=== PATIENT | male | born 1950 | race Caucasian/White ===

== ENCOUNTER 2024-11-19 09:11 | Outpatient (AMB) | payer MEDICARE, OTHER, SELFPAY ==
--- OUTSIDE RECORDS SUMMARY | 2024-11-19 09:40 | XMS_ITS | Encounter Summary ---
Author Organization [facility] Address [address] [facility] [address] [place] [address] Phone Care Team Providers Care Vehicle Return Associate Name Role Phone Edis Abdalla MD Primary Care Provider +[phone] Solo Anna MD Unavailable [phone] Krystle Diaz RN Unavailable YVONNE [email or web address] Last Jackman MD Unavailable [phone] Selina Rao RN Unavailable PATEL HERRON@[email or web address] Vivek Huddleston RN Unavailable [phone] Rima Dubon RN Unavailable KYLAH [email or web address] Encounter Details Date Type Department Care Team (Late st Contact Info) Description 10/19/2020 Procedure Pass [facility] [place] [address] [place] [address] Social History Tobacco Use Types Packs/Day Years Used Date Smoking Tobacco: Never Smokeless Tobacco: Never Alcohol Use Standard Drinks/Week Comments No 0 (1 standard drink = 0.6 oz pur e alcohol) Sex and Gender Information Value Date Recorded Sex Assigned at Not on file Legal Sex Male 3:40 PM EDT Gender Identity Not on file Sexual Orientation Not on file documented as of this encounter Plan of Treatment Upcoming Encounters Date Type Department Care Team (Late st Contact Info) Description 09/22/2025 8:30 AM EDT Telemedicine - audio only [facility], [facility] [place] [facility] [place] [address] [facility], 11th [place] [address] Last Jackman MD [address] [place] [address] [email or web address] documented as of this encounter Visit Diagnoses Not on filedocumented in this encounter Care Teams Vehicle Return Associate Relationship Specialty Start Date End Date Edis Abdalla MD [address] [place] [address] [address] [place] [address] PCP - General Internal Medicine 01/18/18 Solo Anna MD 100 [facility] [address] [place] [phone] [email or web address] Referring Physician Urology 01/18/18 Krystle Diaz, BRITNEY 100 [facility] 120 [place] [address] OG@[email or web address] Primary Infusion Nurse 04/08/18 Last Jackman MD [address] [place] [address] [email or web address] Medical Oncology 10/22/18 Selina Rao RN [address] [place] [address] [email or web address] Associate Infusion Nurse 11/26/19 Vivek Huddleston RN [address] [place] [address] [email or web address] Associate Infusion Nurse 11/26/19 1 Rima Dubon RN [address] [place] [address] VIOLETA@[email or web address] Associate Infusion Nurse 02/21/21 documented as of this encounter Additional Source Comments The information contained in this document represents components of the legal health record. It is not the complete legal health record.[facility]
--- OUTSIDE RECORDS SUMMARY | 2024-11-19 09:40 | XMS_ITS | Clinical Summary ---
Author Organization [facility] Address [address] [place] [address] Care Team Providers Care Bakery Helper Name Role Phone Edis Abdalla MD Primary Care Provider Allergies Active Allergy Reactions Criticality Noted Date Comments Tamsulosin 09/18/2018 Medications Medication Sig Dispensed Refills Start Date End Date Status venlafaxine (EFFEXOR-XR) 150 MG 24 hr capsule Take 150 mg by mouth daily. 5 08/25/2018 Active simvastatin (ZOCOR) tablet 10 mg Take 10 mg by mouth. 0 Active metFORMIN (GLUCOPHAGE-XR) ER 24 hr tablet 500 mg 0 09/09/2018 Active losartan (COZAAR) tablet 50 mg Take 50 mg by mouth daily. 1 08/13/2018 Active aspirin 81 MG chewable tablet Baby Aspirin 81 mg chewable tablet Chew 1 tablet every day by oral route. 0 Active fluticasone (FLONASE) 50 MCG/ACT nasal spray spray or apply 1 spray inside Nose daily. 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 Tenosynovitis 09/18/2018 Social History Tobacco Use Types Packs/Day Years Used Date Smoking Tobacco: Never Smokeless Tobacco: Never Chew Sex and Gender Information Value Date Recorded Sex Assigned at Male 09/18/2018 9:30 AM EDT Gender Identity Male 09/18/2018 9:30 AM EDT Sexual Orientation Not on file Job Start Date Occupation Industry Not on file Not on file Not on file Last Filed Vital Signs Vital Sign Reading Time Taken Comments Blood Pressure 157/74 11/01/2019 2:45 PM EDT Pulse 65 11/01/2019 2:45 PM EDT Temperature 36.4 C (97.5 F) 11/01/2019 2:45 PM EDT Respiratory Rate 16 11/01/2019 2:45 PM EDT Oxygen Saturation 95% 11/01/2019 2:45 PM EDT Inhaled Oxygen Concentration - - Weight 133.8 kg (295 lb) 11/01/2019 12:33 PM EDT Height 190.5 cm (6' 3 ) 11/01/2019 12:33 PM EDT Body Mass Index 36.87 11/01/2019 12:33 PM EDT Plan of Treatment Health Maintenance Due Date Last Done Comments Hepatitis C Screening 1950 COVID-19 Vaccine (#1) 06/23/1951 Depression Screening 1962 Preventative Health Evaluation 1968 DTap / Tdap / Td (1 - Tdap) 1969 Colon Cancer Screening (Colonoscopy) 12/24/1995 Shingrix-Zoster Vaccine (1 of 2) 2000 Fall Risk Assessment 12/24/2015 Pneumococcal Vaccine (2 of 2 - PPSV23 or PCV20) 04/24/2017 04/24/2016 BMI Counseling 09/19/2019 09/18/2018 Influenza Vaccine (#1) 2024 01/08/2017 RSV Adult > 60+ Yrs or Pregn ant (1 - 1-dose 75+ series) 2025 Hepatitis B Vaccines Aged Out No long er eligible based on patient's age to complete this topic RSV Ped < 20 months Aged Out No longe r eligible based on patient's age to complete this topic Care Teams Bakery Helper Relationship Specialty Start Date End Date Edis Abdalla MD PCP - General Internal Medicine 09/18/18
--- OUTSIDE RECORDS SUMMARY | 2024-11-19 09:40 | XMS_ITS | Clinical Summary ---
Author Organization [facility], Address [address] [place] [address] Care Team Providers Care Timber Management Specialist Name Role Phone Edis Abdalla MD Primary Care Provider [phone] Allergies Active Allergy Reactions Criticality Noted Date Comments Tamsulosin 08/04/2019 Medications aspirin (ST GRANT) 81 MG EC tablet Take 81 mg by mouth 1 (one) time each day Active Calcium Carbonate-Vitam in D (CALTRATE 600+D PO) Take 1 tablet by mouth twice a day Active omega-3 (FISH OIL) 1000 MG capsule Take 1 capsule by mouth 1 (one) time each day Active fluticasone (FLONASE) 50 MCG/ACT nasal spray Administer 1 spray into each nostril 1 (one) time each day Active losartan (COZAAR) 50 MG tablet Take 50 mg by mouth 1 (one) time each day Active metFORMIN XR (GLUCOPHATE-XR) 500 MG 24 hr tablet Take 500 mg by mouth 1 (one) time each day Active metroNIDAZOLE (METROCREAM) 0.75 % cream Apply topically 2 (two) times a day Active Lactobacillus Rhamnosus, GG, (PROBIOTIC COLIC PO) Take 1 capsule by mouth 1 (one) time each day Active simvastatin (ZOCOR) 20 MG tablet Take 20 mg by mouth every night Active acetaminophen (TYLENOL) 325 MG tablet Take 325 mg by mouth 3 (three) times a day Active venlafaxine XR (EFFEXOR-XR) 75 MG 24 hr capsule Take 75 mg by mouth 1 (one) time each day Active Active Problems Problem Noted Date Diagnosed Date Type 2 diabetes mellitus 08/09/2020 Overview (08/09/2020): managed with metformin Stage 3a chronic kidney disease 08/04/2019 Malignant neoplasm of prostate 12/24/2017 Overview (08/09/2020): Followed by Dr. Azalia Shaw [facility]. Currently on protocol 18-429 METACURE Randomized to Cohort A, Arm 1 (neoadjuvant Lupron {LD 09/25/2018}+ apalutamide {LD planned for 10/01/2018} only). Pt. now scheduled for have Robotic Laparoscopic Radical Prostatectomy. Benign prostatic hyperplasia with lower urinary tract symptom Essential hypertension Hyperlipidemia Impaired fasting glucose Immunizations Immunization Administration Dates Next Due Influenza Split High Dose Preservative Free IM 1 Pneumococcal Conjugate 13-Valent 04/24/2016 Zoster 08/08/2018 Family History Medical History Relation Comments Prostate cancer Brother Cancer Father bladder, lung Diabetes Father Kidney disease Father Arthritis Mother Relation Status Comments Brother Father Mother Social History Tobacco Use Types Packs/Day Years Used Date Smoking Tobacco: Never Alcohol Use Standard Drinks/Week Comments No 0 (1 standard drink = 0.6 oz pur e alcohol) Sex and Gender Information Value Date Recorded Sex Assigned at Not on file Legal Sex Male 4:36 PM EST Gender Identity Not on file Sexual Orientation Not on file Last Filed Vital Signs Vital Sign Reading Time Taken Comments Blood Pressure 128/78 08/01/2022 2:41 PM EDT Pulse 70 08/01/2022 2:41 PM EDT Temperature - - Respiratory Rate 22 08/07/2017 12:00 PM EDT Oxygen Saturation - - Inhaled Oxygen Concentration - - Weight 132 kg (292 lb) 08/09/2021 2:55 PM EDT Height 190.5 cm (6' 3 ) 08/06/2018 12:00 PM EDT Body Mass Index 36.5 08/06/2018 12:00 PM EDT Plan of Treatment Health Maintenance Due Date Last Done Comments Colorectal Cancer Screening: Annual FOBT 12/24/1999 Colorectal Cancer Screening: Colonoscopy 12/24/1999 Colorectal Cancer Screening: Sigmoidoscopy 12/24/1999 Diabetes: Hemoglobin A1C 08/09/2020 Diabetes: Ophthalmology Exam 08/09/2020 Diabetes: Pedal Pulse Checked 08/09/2020 Diabetes: Sensory Foot Exam 08/09/2020 Diabetes: Visual Foot Exam 08/09/2020 Influenza Vaccine (#1) 2024 0, 01/08/2017, 01/26/2016 Pneumococcal Vaccine: 50+ Years Completed 10/01/2017, 04/24/2016 Pneumococcal Vaccine: Peds ( 0 to 5 Years) and At-Risk Patients (6 to 49 Years) Discontinued 10/01/2017, 04/24/2016 Hepatitis B Vaccine Aged Out No longe r eligible based on patient's age to complete this topic Insurance Medicare [facility] Care Teams Timber Management Specialist Relationship Specialty Start Date End Date Edis Abdalla MD [address] [place] [address] PCP - General 01/28/19
--- OUTSIDE RECORDS SUMMARY | 2024-11-19 09:40 | XMS_ITS | Encounter Summary ---
Author Organization [facility] Address [address] [facility] [address] [place] [address] Phone Care Team Providers Care Textile Screen Maker Name Role Phone Edis Abdalla MD Primary Care Provider [phone]- [phone] Solo Anna MD Unavailable [phone]- [phone] Krystle Diaz RN Unavailable YVONNE RUDD@[email or web address].[place].[facility] Last Jackman MD Unavailable [phone] Selina Rao RN Unavailable PATEL HERRON@[facility].[place] Vivek Huddleston RN Unavailable [phone] Rima Dubon RN Unavailable KYLAH ISAAC@[email or web address].[place] Encounter Details Date Type Department Care Team (Late st Contact Info) Description 01/21/2020 Procedure Pass [facility] [address] [place] [address] Social History Tobacco Use Types Packs/Day Years [...] 8:30 AM EDT Telemedicine - audio only [facility], [facility] [place] [address] [facility], 11th [place] [address] Last Jackman MD [address] [place] [address] Silvestre@[email or web address] documented as of this encounter Visit Diagnoses Not on filedocumented in this encounter Care Teams Textile Screen Maker Relationship Specialty Start Date End Date Edis Abdalla MD [address] [place] [address] [address] [place] [address] PCP - General Internal Medicine 01/18/18 Solo Anna MD [address] [phone] [email or web address] Referring Physician Urology 01/18/18 Krystle Diaz, BRITNEY [address] [phone] OG@[email or web address] Primary Infusion Nurse 04/08/18 Last Jackman MD [address] [place] [address] Silvestre@[email or web address] Medical Oncology 10/22/18 Selina Rao RN [address] [place] [address] DAVID@[facility] Associate Infusion Nurse 11/26/19 Vivek Huddleston RN [address] [place] [address] [email or web address] Associate Infusion Nurse 11/26/19 1 Rima Dubon RN [address] [place] [address] VIOLETA@[email or web address] Associate Infusion Nurse 02/21/21 documented as of this encounter Additional Source Comments The information contained in this document represents components of the legal health record. It is not the complete legal health record.[facility]
--- OUTSIDE RECORDS SUMMARY | 2024-11-19 09:40 | XMS_ITS | Encounter Summary ---
Author Organization [facility] Address [address] [facility] [address] [place] [address] Phone Care Team Providers Care Warehouse Receiving Clerk Name Role Phone Edis Abdalla MD Primary Care Provider [phone] Solo Anna MD Unavailable [phone]- [phone] Krystle Diaz RN Unavailable YVONNE RUDD@[email or web address].[place] Last Jackman MD Unavailable [phone] Selina Rao RN Unavailable PATEL HERRON@[facility].[place] Vivek Huddleston RN Unavailable [phone] Rima Dubon RN Unavailable KYLAH ISAAC@[facility].[place] Encounter Details Date Type Department Care Team (Late st Contact Info) Description 02/11/2018 Procedure Pass [facility] [address] [place] [address] Social History Tobacco Use Types Packs/Day Years Used Date Smoking Tobacco: Never Assessed Sex and Gender Information Value Date Recorded Sex Assigned at Not on file Legal Sex Male 3:40 PM EDT Gender Identity Not on file Sexual Orientation Not on file documented as of this encounter Plan of Treatment Upcoming Encounters Date Type Department Care Team (Late st Contact Info) Description 09/22/2025 8:30 AM EDT Telemedicine - audio only [facility], [facility] [place] [address] [facility], 11th [place] [address] Last Jackman MD [address] [place] [address] Silvestre@[email or web address] documented as of this encounter Visit Diagnoses Not on filedocumented in this encounter Care Teams Warehouse Receiving Clerk Relationship Specialty Start Date End Date Edis Abdalla MD [address] [place] [address] PCP - General Internal Medicine 01/18/18 Solo Anna MD [address] [phone] [email or web address] Referring Physician Urology 01/18/18 Krystle Diaz RN [address] [phone] OG@[email or web address] Primary Infusion Nurse 04/08/18 Last Jackman MD [address] [place] [address] Silvestre@[email or web address] Medical Oncology 10/22/18 Selina Rao RN [address] [place] [address] DAVID@[facility] Associate Infusion Nurse 11/26/19 Vivek Huddleston, BRITNEY [address] [place] [address] [email or web address] Associate Infusion Nurse 11/26/19 1 Rima Dubon RN [address] [place] [address] VIOLETA@[facility] Associate Infusion Nurse 02/21/21 documented as of this encounter Additional Source Comments The information contained in this document represents components of the legal health record. It is not the complete legal health record.[facility]
--- OUTSIDE RECORDS SUMMARY | 2024-11-19 09:40 | XMS_ITS | Encounter Summary ---
Author Organization [facility] Address [address] [facility] [address] [place] [address] Phone Care Team Providers Care Detention Officer Name Role Phone Edis Abdalla MD Primary Care Provider [phone] Solo Anna MD Unavailable [phone] Krystle Diaz RN Unavailable YVONNE [email or web address].[place].[facility] Last Jackman MD Unavailable [phone] Selina Rao RN Unavailable PATEL HERRON@[facility] Vivek Huddleston RN Unavailable [phone] Rima Dubon RN Unavailable KYLAH [email or web address] Encounter Details Date Type Department Care Team (Late st Contact Info) Description 03/25/2018 Procedure Pass [facility], [place] [address] [place] [address] Social History Tobacco Use Types Packs/Day Years [...] on file documented as of this encounter Last Filed Vital Signs Vital Sign Reading Time Taken Comments Blood Pressure - - Pulse - - Temperature - - Respiratory Rate - - Oxygen Saturation - - Inhaled Oxygen Concentration - - Weight 126.1 kg (278 lb) 03/28/2018 11:00 AM EST Height - - Body Mass Index 36.06 02/11/2018 3:32 PM EST documented in this encounter Plan of Treatment Upcoming Encounters Date Type Department Care Team (Late st Contact Info) Description 09/22/2025 8:30 AM EDT Telemedicine - audio only [facility], [facility] [place] [address] [facility], 11th [place] [address] Last Jackman MD 450 [place] [address] Silvestre@[email or web address] documented as of this encounter Visit Diagnoses Not on filedocumented in this encounter Care Teams Detention Officer Relationship Specialty Start Date End Date Edis Abdalla MD [facility] [address] [place] [address] PCP - General Internal Medicine 01/18/18 Solo Anna MD 100 [facility] 120 [place] [address] [email or web address] Referring Physician Urology 01/18/18 Krystle Diaz RN 100 [facility] 120 [place] [address] OG@[email or web address] Primary Infusion Nurse 04/08/18 Last Jackman MD [address] [place] [address] Silvestre@[facility] Medical Oncology 10/22/18 Selina Rao RN [address] [place] [address] DAVID@[facility] Associate Infusion Nurse 11/26/19 Vivek Huddleston RN 450 [place] [address] Rickey@[facility] Associate Infusion Nurse 11/26/19 1 Rima Dubon RN [address] [place] [address] VIOLETA@[facility] Associate Infusion Nurse 02/21/21 documented as of this encounter Additional Source Comments The information contained in this document represents components of the legal health record. It is not the complete legal health record.[facility]
--- OUTSIDE RECORDS SUMMARY | 2024-11-19 09:40 | XMS_ITS | Encounter Summary ---
Author Organization [facility] Address [address] [facility] [address] [place] [address] Phone Care Team Providers Care Emergency Medicine Physician Name Role Phone Edis Abdalla MD Primary Care Provider [phone] Solo Anna MD Unavailable [phone] Krystle Diaz RN Unavailable YVONNE RUDD@[email or web address] Last Jackman MD Unavailable [phone] Selina Rao RN Unavailable PATEL HERRON@[facility] Vivek Huddleston RN Unavailable [phone] Rima Dubon RN Unavailable KYLAH ISAAC@[email or web address] Encounter Details Date Type Department Care Team (Late st Contact Info) Description 10/03/2018 Procedure Pass [facility] Periop [address] [place] [address] Social History Tobacco Use Types Packs/Day Years [...] 8:30 AM EDT Telemedicine - audio only [facility], [facility] [place] [address] [place] [address] 11th [place] [address] Last Jackman MD [address] [place] [address] Silvestre@[email or web address] documented as of this encounter Visit Diagnoses Not on filedocumented in this encounter Care Teams Emergency Medicine Physician Relationship Specialty Start Date End Date Edis Abdalla MD [address] [place] [address] 201 [place] [address] PCP - General Internal Medicine 01/18/18 Solo Anna MD [address] [phone] [email or web address] Referring Physician Urology 01/18/18 Krystle Diaz RN [address] [phone] OG@[facility] Primary Infusion Nurse 04/08/18 Last Jackman MD [address] [place] [address] Silvestre@[facility] Medical Oncology 10/22/18 Selina Rao RN [address] [place] [address] DAVID@[facility] Associate Infusion Nurse 11/26/19 Vivek Hudldeston RN [address] [place] [address] [email or web address] Associate Infusion Nurse 11/26/19 1 Rima Dubon RN [address] [place] [address] VIOLETA@[facility] Associate Infusion Nurse 02/21/21 documented as of this encounter Additional Source Comments The information contained in this document represents components of the legal health record. It is not the complete legal health record.[facility]
--- OUTSIDE RECORDS SUMMARY | 2024-11-19 09:40 | XMS_ITS ---
Author Organization [facility] Address [address] [facility] [address] [place] [address] Phone Care Team Providers Care Horticultural Technical Officer Name Role Phone Edis Abdalla MD Primary Care Provider [phone] Solo Anna MD Unavailable [phone] Krystle Diaz RN Unavailable YVONNE [email or web address] Last Jackman MD Unavailable Selina Rao RN Unavailable PATEL HERRON@[email or web address] Rima Dubon RN Unavailable KYLAH [email or web address] Active Problems Problem Noted Date Diagnosed Date Malignant neoplasm of prostate 02/11/2018 Prostate cancer 12/24/2017 Overview (09/25/2018): Followed by Dr. Azalia Shaw [facility]. Currently on protocol 18-429 METACURE Randomized to Cohort A, Arm 1 (neoadjuvant Lupron {LD 09/25/2018}+ apalutamide {LD planned for 10/01/2018} only). Pt. now scheduled for have Robotic Laparoscopic Radical Prostatectomy. 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 Treated in [place], [place] Sleep apnea 03/26/2010 Overview (09/25/2018): CPAP Hypertensive disorder 03/26/2003 Overview (09/25/2018): Well controlled with Losartan. Managed by Dr. Edis Abdalla Hyperlipidemia Overview (09/25/2018): on statin Hot flashes Overview (09/25/2018): r/t Lupron. Managed with Effexor. Diabetes type 2, controlled Overview (09/25/2018): managed with metformin Colon polyp Arthritis Overview (09/25/2018): ? right thum and back Obesity (BMI 30-39.9) Overview (09/25/2018): Ht: 75 , Wt: 282# = BMI 35.25 Current Treatment and Therapy Plans No current plan information found. Past Treatment and Therapy Plans Oncology Therapy Plan Plan Name Start Date Discontinue Date Treatment Medications Discontinue Reason Plan Provider LEUPROLIDE ACETATE 3 MONTH (LUPRON DEPOT 3 MONTH) 11/23/2020 02/10/2022 leuprolide (LUPRON) a. Therapy Complete Last Jackman MD LEUPROLIDE ACETATE 3 MONTH (LUPRON DEPOT 3 MONTH) 04/09/2018 03/28/2019 leuprolide (LUPRON) a. Therapy Complete Last Jackman MD RESEARCH PLAN Plan Name Start Date Discontinue Date Treatment Medications Discontinue Reason Plan Provider Cycles -429 ARM 1 04/09/2018 01/20/2022 ID-apalutamide <[id number]> () a. Therapy Complete Last Jackman MD 9 of 10 cycles completed
--- OUTSIDE RECORDS SUMMARY | 2024-11-19 09:40 | XMS_ITS | Clinical Summary ---
Author Organization [facility] Address [address] [place] [address] Care Team Providers Care Wholesaler Name Role Phone Edis Abdalla MD Primary Care Provider [phone] Social History Tobacco Use Types Packs/Day Years Used Date Smoking Tobacco: Never Assessed Sex and Gender Information Value Date Recorded Sex Assigned at Male 11/12/2024 9:45 AM EDT Legal Sex Male 9:43 AM EDT Gender Identity Male 11/12/2024 9:45 AM EDT Sexual Orientation Heterosexual (straight) 11/12 9:45 AM EDT Plan of Treatment Upcoming Encounters Date Type Department Care Team (Late st Contact Info) Description 01/01/2025 7:00 AM EDT Clinical Support [facility] [address], [place] [phone] Bhavik Mcwilliams MD [address] [place] [address] Wendy Yen Au.D [address] [place] [address] Health Maintenance Due Date Last Done Comments Hepatitis C Virus Screening 1950 DTaP/Tdap/Td Vaccines (1 - Tdap) 1969 Colonoscopy 12/24/1995 Pneumococcal Vaccines 50+ (1 of 1 - PCV) 2000 Zoster (Shingles) Vaccine (1 of 2) 2000 COVID-19 Vaccine ( - 2023-2 5 season) 2023 Influenza Vaccine 10/24/2024 RSV Vaccine 60 years and old er and Patients (1 - 1-dose 75+ series) 2025 Hepatitis B Vaccines Aged Out No long er eligible based on patient's age to complete this topic Insurance MEDICARE PART A & B Care Teams Wholesaler Relationship Specialty Start Date End Date Edis Abdalla MD [address] [place] [address] PCP - General 11/12/24
--- OUTSIDE RECORDS SUMMARY | 2024-11-19 09:40 | XMS_ITS | Encounter Summary ---
Author Organization [facility] Address [address] [facility] [address] [place] [address] Phone Care Team Providers Care Plastics Engineer Name Role Phone Edis Abdalla MD Primary Care Provider [phone] Solo Anna MD Unavailable [phone]- [phone] Krystle Diaz RN Unavailable YVONNE [email or web address] Last Jackman MD Unavailable [phone] Selina Rao RN Unavailable PATEL [email or web address] Vivek Huddleston RN Unavailable [phone] Rima Dubon RN Unavailable KYLAH [email or web address] Encounter Details Date Type Department Care Team (Late st Contact Info) Description 01/21/2020 Procedure Pass [facility] [address] [place] [address] Social History Tobacco Use Types Packs/Day Years [...] 8:30 AM EDT Telemedicine - audio only [facility], [facility] [place] [address] [facility], 11th [place] [address] Last Jackman MD [address] [place] [address] [email or web address] documented as of this encounter Visit Diagnoses Not on filedocumented in this encounter Care Teams Plastics Engineer Relationship Specialty Start Date End Date Edis Abdalla MD [address] [place] [address] [address] [place] [address] PCP - General Internal Medicine 01/18/18 Solo Anna MD [address] [phone] [email or web address] Referring Physician Urology 01/18/18 Krystle Diaz, BRITNEY [address] [phone] [email or web address] Primary Infusion Nurse 04/08/18 Last Jackman MD [address] [place] [address] [email or web address] Medical Oncology 10/22/18 Selina Rao RN [address] [place] [address] [email or web address] Associate Infusion Nurse 11/26/19 Vivek Huddleston RN [address] [place] [address] [email or web address] Associate Infusion Nurse 11/26/19 1 Rima Dubon RN [address] [place] [address] [email or web address] Associate Infusion Nurse 02/21/21 documented as of this encounter Additional Source Comments The information contained in this document represents components of the legal health record. It is not the complete legal health record.[facility]
--- OUTSIDE RECORDS SUMMARY | 2024-11-19 09:40 | XMS_ITS | Clinical Summary ---
Author Organization [facility] Address [address] [facility] [address] [place] [address] Phone Care Team Providers Care Eddy Current Inspector Name Role Phone Edis Abdalla MD Primary Care Provider [phone] Solo Anna MD Unavailable [phone] Krystle Diaz RN Unavailable YVONNE [email or web address] Last Jackman MD Unavailable Selina Rao RN Unavailable PATEL [email or web address] Rima Dubon RN Unavailable KYLAH [email or web address] Allergies Active Allergy Reactions Criticality Noted Date Comments Tamsulosin Headaches,Musculoskeletal Pain 02/08 Jaw pain Medications simvastatin (ZOCOR) 10 MG tablet Take 10 mg by mouth nightly. Active fluticasone propionate (FLONASE) 50 mcg/actuation nasal spray 1 spray by Nasal route daily. Active venlafaxine (EFFEXOR-XR) 37.5 MG 24 hr capsule Take 37.5 mg by mouth daily. Active Active Problems Problem Noted Date Diagnosed Date Malignant neoplasm of prostate 02/11/2018 Prostate cancer 12/24/2017 Overview (09/25/2018): Followed by Dr. Azalia Shaw [facility]. Currently on protocol 18-429 METACURE Randomized to Cohort A, Arm 1 (neoadjuvant Lupron {LD 09/25/2018}+ apalutamide {LD planned for 10/01/2018} only). Pt. now scheduled for have Robotic Laparoscopic Radical Prostatectomy. 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 Treated in [place], [place] Sleep apnea 03/26/2010 Overview (09/25/2018): CPAP [...] 75 , Wt: 282# = BMI 35.25 Encounters Date Type Department Care Team Description 10/03/2024 12:00 PM EDT Telemedicine - audio only [facility], Genitourinary Oncology [address] [facility] 2nd [place] [address] Last Jackman MD Malignant neoplasm of prostate (Primary Dx) 09/01/2024 Orders Only [facility], [facility] [place] [address] [facility], 11th [place] [address] Bobbi Saavedra Malignant neoplasm of prostate (Primary Dx) from Last 3 Months Immunizations Immunization Administration Dates Next Due Pneumococcal conjugate PCV13 10/04/2018(Deferred : Patient Refused) Family History Medical History Relation Comments Prostate cancer Brother 1 No Known Problems Brother 2 Bladder Cancer Father Lung cancer Father Rheumatoid arthritis Mother Relation Status Comments Brother 1 Alive Brother 2 Alive Father (Age 87) Maternal Grandmother (Age 90s) Mother Alive Paternal Grandmother (Age 103) Social History Tobacco Use Types Packs/Day Years Used Date Smoking Tobacco: Never Smokeless Tobacco: Never Alcohol Use Standard Drinks/Week Comments No 0 (1 standard drink = 0.6 oz pur e alcohol) Education Answer Date Recorded Are you interested in more education? Not on kylah e 07/21/2022 Are you concerned about learning? Not on file 07/21/2022 No 07/21/2022 No 07/21/2022 Digital Access Answer Date Recorded No 08/22/2022 No 08/22/2022 Reliable internet access at home? Not on file 08/22/2022 Device with a working camera? Not on file Sex and Gender Information Value Date Recorded Sex Assigned at Not on file Legal Sex Male 3:40 PM EDT Gender Identity Not on file Sexual Orientation Not on file Last Filed Vital Signs Vital Sign Reading Time Taken Comments Blood Pressure 137/69 02/22/2021 1:31 PM EST Pulse 72 02/22/2021 1:31 PM EST Temperature 36.8 C (98.2 F) 02/22/2021 1:31 PM EST Respiratory Rate 18 02/22/2021 1:31 PM EST Oxygen Saturation 97% 02/22/2021 1:31 PM EST Inhaled Oxygen Concentration - - Weight 139.7 kg (307 lb 15.7 oz) 02/22/2021 1:31 PM EST Height 187.2 cm (6' 1.7 ) 11/23/2020 1:13 PM EDT Body Mass Index 39.86 11/23/2020 1:13 PM EDT Plan of Treatment Upcoming Encounters Date Type Department Care Team (Late st Contact Info) Description 09/22/2025 8:30 AM EDT Telemedicine - audio only [facility], [facility] [place] [address] [facility], 11th [place] [address] Last Jackman MD 450 [place] [address] [email or web address] Health Maintenance Due Date Last Done Comments BLOOD PRESSURE 1950 DEPRESSION SCREENING 1962 HEPATITIS C SCREENING 1968 COLOGUARD 12/24/1995 COLONOSCOPY 12/24/1995 COLORECTAL CANCER SCREENING 12/24/1995 FIT TEST 12/24/1995 FOBT 12/24/1995 SIGMOIDOSCOPY 12/24/1995 VIRTUAL COLONOSCOPY 12/24/1995 DIABETIC EYE EXAM 09/25/2018 URINE MICROALBUMIN/CREATININE RATIO 09/25/2018 HEMOGLOBIN A1C 03/28/2019 09/25/2018 LIPID PANEL 01/26/2021 01/27/2020 Adult Td,Tdap Booster 11/29/2033 11/30/2023, 014 PNEUMOCOCCAL VACCINES (50+ years) Completed 10/01/2017, 04/24/2016 ZOSTER VACCINES Completed 08/08/2018, 05/24, 02/26/2014 RSV VACCINE Completed 02/09/2024, 02/23/2023 COVID-19 VACCINE Completed 07/14/2024, 04/2023, 06/04/2023, Additional history exists SMOKING STATUS SCREENING (Once After 26 Yrs) Completed 10/03/2024 HEPATITIS A VACCINES Aged Out No long er eligible based on patient's age to complete this topic HIB VACCINES Aged Out No longer eligi ble based on patient's age to complete this topic MENINGOCOCCAL VACCINES (ACWY) Aged Out No longer eligible based on patient's age to complete this topic MENINGOCOCCAL VACCINES (B) Aged Out N o longer eligible based on patient's age to complete this topic Medical Devices Implanted Type Area Braided Rug Maker Device Identifier Shelf Expiration Date Model / Serial / Lot Titanium & Screws R Foot Description:Right foot Procedures Procedure Name Priority Date/Time Associated Diagnosis Comments OUTSIDE LAB 10/01/2024 OUTSIDE LAB 10/01/2024 OUTSIDE LAB 10/01/2024 OUTSIDE LAB 09/24/2024 OUTSIDE LAB 09/24/2024 LIPID PANEL Routine 01/27/2020 10:31 AM EST [facility] [place] [facility] ([facility] drug therapy Malignant neoplasm of prostate HEMOGLOBIN A1C Routine 09/25/2018 2:08 PM EDT Pre-op evaluation from Last 3 Months or Most Recently Relevant to Health Maintenance Results * Outside Lab (10/01/2024) Only the most recent of5 resultswithin the time period is included. us Scanning Interface Provider LAB BLOOD ORDERABLES Final Result * (ABNORMAL) Lipid panel (01/27/2020 10:31 AM EST) CHOLESTEROL 164 <200 mg/dL [facility] LIC# [id number] TRIGLYCERIDES 202(H) 35 - 150 mg/dL [facility] LIC# [id number] HDL 45 40 - 80 mg/dL [facility] LIC# [id number] CALCULATED LDL 79 50 - 129 mg/dL [facility] LIC# [id number] VLDL 40 mg/dL [facility] LIC# [id number] CARDIAC RISK RATIO 3.6 0.0 - 5.0 [facility] LIC# [id number] Blood 01/27/2020 10:3 1 AM EST 01/27/2020 10:48 AM EST us Last Jackman MD LAB BLOOD ORDERABLES Final Result [facility] LIC# [id number] [address] [place] [address] * Hemoglobin A1c (09/25/2018 2:08 PM EDT) HEMOGLOBIN A1C 5.8 4.2 - 5.8 % [facility] CALC MEAN BLD GLUC 120 mg/dL [facility] Comment: There is no established normal range for the CMBG (Calculated Mean Blood Glucose). A hemoglobin A1c < 7% is the recommended target for most people with diabetes. The CMBG for an A1c of 7% is 154 mg/dL. The diagnostic hemoglobin A1c level for diabetes is greater than or equal to 6.5% which is a CMBG greater than or equal to 140 mg/dL. Blood 09/25/2018 2:08 PM EDT 09/25/2018 2:51 PM EDT Nghia Mahoney MD LAB BLOOD ORDERABLES Final Result [facility] [address] [place] [address] from Last 3 Months or Most Recently Relevant to Health Maintenance Insurance MEDICARE PART A & B [facility] MEDICARE ENHANCE SUPPLEMENT MEDICARE PART A & B [facility] MEDICARE ENHANCE SUPPLEMENT MEDICARE PART A & B [facility] MEDICARE ENHANCE SUPPLEMENT MEDICARE PART A & B [facility] MEDICARE ENHANCE SUPPLEMENT MEDICARE PART A & B [facility] MEDICARE ENHANCE SUPPLEMENT MEDICARE PART A & B [facility] MEDICARE ENHANCE SUPPLEMENT MEDICARE PART A & B [facility] MEDICARE ENHANCE SUPPLEMENT MEDICARE PART A & B [facility] MEDICARE ENHANCE SUPPLEMENT MEDICARE PART A & B [facility] MEDICARE ENHANCE SUPPLEMENT Advance Directives For more information, please contact: [phone] (9AM - 5PM Julianne/[facility], Sunday-Sunday) Documents on File Type Date Recorded Patient Superintendent Pipelines Expl anation Healthcare Proxy 10/10/2018 * Full Code (Presumed) (Latest Code Status on File) Date Activated Date Inactivated Comments 10/03/2018 9:11 PM 10/04/2018 4:37 PM Healthcare Agents on File Name Relationship Healthcare Agent Lakishahi p Communication Toan De Leon Spouse .Primary Health Care Agent (Proxy form on file) Care Teams Eddy Current Inspector Relationship Specialty Start Date End Date Edis Abdalla MD [address] [place] [address] PCP - General Internal Medicine 01/18/18 Solo Anna MD [address] [place] [address] [place] [address] [email or web address] Referring Physician Urology 01/18/18 Krystle Diaz RN [address] [facility] [address] [facility] [address] [place] [address] [email or web address] Primary Infusion Nurse 04/08/18 Last Jackman MD [address] [place] [address] [email or web address] Medical Oncology 10/22/18 Selina Rao RN [address] [place] [address] DAVID@[email or web address] Associate Infusion Nurse 11/26/19 Rima Dubon RN [address] [place] [address] VIOLETA@[email or web address] Associate Infusion Nurse 02/21/21 Additional Source Comments The information contained in this document represents components of the legal health record. It is not the complete legal health record.[facility]
--- OUTSIDE RECORDS SUMMARY | 2024-11-19 09:40 | XMS_ITS ---
[facility] Care Team Organization Name Specialty Phone Email Start Date End [facility] Edis Abdalla Primary Care 11/12/2024
--- OUTSIDE RECORDS SUMMARY | 2024-11-19 09:40 | XMS_ITS | Clinical Summary ---
Author Organization [employer] [facility] it Address [id number] [place] [address] Care Team Providers Care Burner Hand Name Role Phone Edis Abdalla MD Primary Care Provider [phone] Medical History Medical History Date Comments Allergic DX:Allergic Cancer (CMS/HCC V24, CMS/HCC V28) DX:Cancer (HCC);COMMENT:prostate High blood pressure DX:High bloo d pressure High cholesterol DX:High cholest ewa Social History Tobacco Use Types Packs/Day Years Used Date Smoking Tobacco: Never Smokeless Tobacco: Never Sex and Gender Information Value Date Recorded Sex Assigned at Not on file Legal Sex Male 6:32 PM EST Gender Identity Not on file Sexual Orientation Not on file Obstetrics History Plan of Treatment Health Maintenance Due Date Last Done Comments DTaP,Tdap,and Td Vaccines (1 - Tdap) 1969 Pneumococcal Vaccine: 50+ Ye ars (1 of 1 - PCV) 2000 Zoster Vaccines (1 of 2) 2000 Abdominal Aortic Aneurysm (A AA) Screen 02/25/2022 Cholesterol Screening (Lipid Panel) 02/25/2022 Colorectal Cancer Screening: Colonoscopy 02/25/2022 Falls Risk Assessment 02/25/2022 Hepatitis C Screening 02/25/2022 Social Influencers of Health Screening 02/25/2022 COVID-19 Vaccine ( - 2023-2 5 season) 2023 Depression Screening 03/26/2024 Influenza Vaccine (#1) 2024 RSV Immunization Adult Patie nts (1 - 1-dose 75+ series) 2025 HIB Vaccines Aged Out No longer eligi ble based on patient's age to complete this topic HPV Vaccines Aged Out No longer eligi ble based on patient's age to complete this topic Hepatitis A Vaccines Aged Out No long er eligible based on patient's age to complete this topic Hepatitis B Vaccines Aged Out No long er eligible based on patient's age to complete this topic IPV Vaccines Aged Out No longer eligi ble based on patient's age to complete this topic MMR Vaccines Aged Out No longer eligi ble based on patient's age to complete this topic Meningococcal ACWY Vaccine Aged Out N o longer eligible based on patient's age to complete this topic Meningococcal B Vaccine Aged Out No l onger eligible based on patient's age to complete this topic RSV Immunization Patients Un leticia 20 months Aged Out No longer eligible b ased on patient's age to complete this topic Varicella Vaccines Aged Out No longer eligible based on patient's age to complete this topic Care Teams Burner Hand Relationship Specialty Start Date End Date Edis Abdalla MD [address] [place] [address] PCP - General Internal Medicine 09/18/18
== END 2024-11-19 09:18 | disposition home or self-care (01) ==
LOC: HO.HMGAL 09:11
PROVIDERS: Visit Provider Registered Nurse Emergency
DX: J30.89 Other allergic rhinitis (principal)
CPT/HCPCS: 95117; 95165

== ENCOUNTER 2024-12-17 10:36 | Outpatient (AMB) | payer MEDICARE, OTHER, SELFPAY ==
--- OUTSIDE RECORDS SUMMARY | 2024-12-17 13:12 | XMS_ITS ---
Author Organization [facility] Address [address] [facility] [address] [place] [address] Phone Care Team Providers Care Sample Patternmaker Name Role Phone Edis Abdalla MD Primary Care Provider [phone] Solo Anna MD Unavailable [phone] Krystle Diaz RN Unavailable YVONNE [email or web address] Last Jackman MD Unavailable [phone] Selina Rao RN Unavailable PATEL HERRON@[email or web address] Rima Dubon RN Unavailable KYLAH [email or web address] Active Problems Problem Noted Date Diagnosed Date Malignant neoplasm of prostate 02/11/2018 Prostate cancer 12/24/2017 Overview (09/25/2018): Followed by Dr. Azalia Shaw [facility]. Currently on protocol 18-429 METACURE Randomized to Cohort A, Arm 1 (neoadjuvant Lupron {LD 09/25/2018}+ apalutamide {LD planned for 10/01/2018} only). Pt. now scheduled for have Robotic Laparoscopic Radical Prostatectomy. 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 Treated in [place], [place] Sleep apnea 03/26/2010 Overview (09/25/2018): CPAP [...] -429 ARM 1 04/09/2018 01/20/2022 ID-apalutamide <[id number]> () a. Therapy Complete Last Jackman MD 9 of 10 cycles completed
--- OUTSIDE RECORDS SUMMARY | 2024-12-17 13:12 | XMS_ITS | Encounter Summary ---
Author Organization [facility] Address [address] [facility] [address] [place] [address] Phone Care Team Providers Care Doorperson Name Role Phone Edis Abdalla MD Primary Care Provider [phone] Solo Anna MD Unavailable [phone] Krystle Diaz RN Unavailable YVONNE [email or web address] Last Jackman MD Unavailable [phone] Selina Rao RN Unavailable PATEL HERRON@[email or web address] Vivek Huddleston RN Unavailable [phone] Rima Dubon RN Unavailable KYLAH [email or web address] Encounter Details Date Type Department Care Team (Late st Contact Info) Description 01/21/2020 Procedure Pass [facility] [address] [place] [address] Social History Tobacco Use Types Packs/Day Years [...] Upcoming Encounters Date Type Department Care Team (Latest Contact Info) Description 09/15/2025 8:30 AM EDT Telemedicine - audio only [facility], [facility] [place] [address] [facility], 11th [place] [address] Last Jackman MD [address] [place] [address] [email or web address] documented as of this encounter Visit Diagnoses Not on filedocumented in this encounter Care Teams Doorperson Relationship Specialty Start Date End Date Edis Abdalla MD [address] [place] [address] PCP - General Internal Medicine 01/18/18 Solo Anna MD 100 [facility] 120 [place] [phone] [email or web address] Referring Physician Urology 01/18/18 Krystle Diaz RN [address] [facility] [address] [place] [address] [email or web address] Primary Infusion Nurse 04/08/18 Last Jackman MD [address] [address] [email or web address] Medical Oncology 10/22/18 Selina Rao RN [address] [place] [address] DAVID@[email or web address] Associate Infusion Nurse 11/26/19 Vivek Huddleston RN [address] [place] [address] [email or web address] Associate Infusion Nurse 11/26/19 1 Rima Dubon RN [address] [place] [address] VIOLETA@[email or web address] Associate Infusion Nurse 02/21/21 documented as of this encounter Additional Source Comments The information contained in this document represents components of the legal health record. It is not the complete legal health record.[facility]
--- OUTSIDE RECORDS SUMMARY | 2024-12-17 13:12 | XMS_ITS | Clinical Summary ---
Author Organization [facility], Address [address] [place] [address] Care Team Providers Care Manager Of Financial Name Role Phone Edis Abdalla MD Primary Care Provider [phone] Allergies Active Allergy Reactions Criticality Noted Date [...] Overview (08/09/2020): Followed by Dr. Azalia Shaw [facility]. Currently on protocol 18-429 METACURE Randomized [...] age to complete this topic Insurance Medicare [facility] Care Teams Manager Of Financial Relationship Specialty Start Date End Date Edis Abdalla MD [address] [place] [address] PCP - General 01/28/19
--- OUTSIDE RECORDS SUMMARY | 2024-12-17 13:12 | XMS_ITS | Clinical Summary ---
Author Organization [facility] Address [address] [place] [address] Care Team Providers Care Bartacker Name Role Phone Edis Abdalla MD Primary [...] age to complete this topic Care Teams Bartacker Relationship Specialty Start Date End Date Edis Abdalla MD PCP - General Internal Medicine 09/18/18
--- OUTSIDE RECORDS SUMMARY | 2024-12-17 13:12 | XMS_ITS | Encounter Summary ---
Author Organization [facility] Address [address] [facility] [address] [place] [address] Phone Care Team Providers Care Coal Pipeline Operator Name Role Phone Edis Abdalla MD Primary Care Provider +1- [phone] Solo Anna MD Unavailable +- [phone] Krystle Diaz RN Unavailable YVONNE [email or web address].[place].[facility] Last Jackman MD Unavailable [phone] Selina Rao RN Unavailable PATEL HERRON@[facility].[place].[facility] Vivek Huddleston RN Unavailable [phone] Rima Dubon RN Unavailable KYLAH ISAAC@[facility].[place].[facility] Encounter Details Date Type Department Care Team (Late st Contact Info) Description 02/11/2018 Procedure Pass DF IMG OUTSIDE IMG [address] [place] [address] Social History Tobacco Use Types Packs/Day Years [...] [facility], [facility] [place] 450 [facility], 11th [place] [address] Last Jackman MD 44 Juliana Hankins [address] [place] [address] Silvestre@[facility] documented as of this encounter Visit Diagnoses Not on filedocumented in this encounter Care Teams Coal Pipeline Operator Relationship Specialty Start Date End Date Edis Abdalla MD [address] [place] [address] PCP - General Internal Medicine 01/18/18 Solo Anna MD [address] [address] [email or web address] Referring Physician Urology 01/18/18 Krystle Diaz RN [address] [address] OG@[facility] Primary Infusion Nurse 04/08/18 Last Jackman MD 44 Juliana Hankins [address] [place] [address] Silvestre@[facility] Medical Oncology 10/22/18 Selina Rao RN [address] [place] [address] DAVID@[facility] Associate Infusion Nurse 11/26/19 Vivek Huddleston RN 450 [place] [address] Rickey@[facility] Associate Infusion Nurse 11/26/19 1 Rima Dubon RN 450 [place] [address] VIOLETA@[facility] Associate Infusion Nurse 02/21/21 documented as of this encounter Additional Source Comments The information contained in this document represents components of the legal health record. It is not the complete legal health record.[facility]
--- OUTSIDE RECORDS SUMMARY | 2024-12-17 13:12 | XMS_ITS | Encounter Summary ---
Author Organization [facility] Address [address] [facility] [address] [place] [address] Phone Care Team Providers Care Swing Grinder Name Role Phone Edis Abdalla MD Primary Care Provider +1- [phone] Solo Anna MD Unavailable [phone] Krystle Diaz RN Unavailable YVONNE RUDD@[facility].[place] Last Jackman MD Unavailable [phone] Selina Rao RN Unavailable PATEL HERRON@[facility].[place] Vivek Huddleston RN Unavailable [phone] Rima Dubon RN Unavailable KYLAH ISAAC@[facility].[place].[facility] Encounter Details Date Type Department Care Team (Late st Contact Info) Description 10/19/2020 Procedure Pass [facility]'s Waiter/Waitress [place] [address] [place] [address] Social History Tobacco Use Types Packs/Day Years [...] 8:30 AM EDT Telemedicine - audio only [facility], [facility] [place] [address] [place], [place] [address] [facility], 11th [place] [address] Lsat Jackman MD [address] [place] [address] Silvestre@[facility] documented as of this encounter Visit Diagnoses Not on filedocumented in this encounter Care Teams Swing Grinder Relationship Specialty Start Date End Date Edis Abdalla MD [address] [place] [address] 201 [place] [address] PCP - General Internal Medicine 01/18/18 Solo Anna MD 100 [facility] 120 [place] [address] [email or web address] Referring Physician Urology 01/18/18 Krystle Diaz RN 100 [facility] 120 [place] [address] OG@[facility] Primary Infusion Nurse 04/08/18 Last Jackman MD [address] [place] [address] Silvestre@[facility] Medical Oncology 10/22/18 Selina Rao RN [address] [place] [address] DAVID@[facility] Associate Infusion Nurse 11/26/19 Vivek Huddleston RN [address] [place] [address] Rickey@[facility] Associate Infusion Nurse 11/26/19 1 Rima Dubon RN [address] [place] [address] VIOLETA@[facility] Associate Infusion Nurse 02/21/21 documented as of this encounter Additional Source Comments The information contained in this document represents components of the legal health record. It is not the complete legal health record.[facility]
--- OUTSIDE RECORDS SUMMARY | 2024-12-17 13:12 | XMS_ITS | Encounter Summary ---
Author Organization [facility] Address [address] [facility] [address] [place] [address] Phone Care Team Providers Care Panel Maker Name Role Phone Edis Abdalla MD Primary Care Provider +1- [phone] Solo Anna MD Unavailable [phone] Krystle Diaz RN Unavailable YVONNE RUDD@[facility].[place].[facility] Last Jackman MD Unavailable [phone] Selina Rao RN Unavailable PATEL HERRON@[facility].[place].[facility] Vivek Huddleston RN Unavailable [phone] Rima Dubon RN Unavailable KYLAH ISAAC@[facility].[place].[facility] Encounter Details Date Type Department Care Team (Late st Contact Info) Description 01/21/2020 Procedure Pass [facility] 70 [place] [address] Social History Tobacco Use Types Packs/Day Years [...] 8:30 AM EDT Telemedicine - audio only [facility], [facility] [place] [address] [facility], 11th [place] [address] Last Jackman MD [address] [place] [address] Silvestre@[facility] documented as of this encounter Visit Diagnoses Not on filedocumented in this encounter Care Teams Panel Maker Relationship Specialty Start Date End Date Edis Abdalla MD [address] [place] [address] PCP - General Internal Medicine 01/18/18 Solo Anna MD 100 [facility] 120 [place] [address] [email or web address] Referring Physician Urology 01/18/18 Krystle Diaz RN 100 [facility] 120 [place] [address] OG@[facility] Primary Infusion Nurse 04/08/18 Last Jackman MD [address] [address] Silvestre@[facility] Medical Oncology 10/22/18 Selina Rao RN [address] [place] [address] DAVID@[facility] Associate Infusion Nurse 11/26/19 Vivek Huddleston RN [address] [place] [address] Rickey@[facility] Associate Infusion Nurse 11/26/19 1 Rima Dubon RN [address] [place] [address] VIOLETA@[facility] Associate Infusion Nurse 02/21/21 documented as of this encounter Additional Source Comments The information contained in this document represents components of the legal health record. It is not the complete legal health record.[facility]
--- OUTSIDE RECORDS SUMMARY | 2024-12-17 13:12 | XMS_ITS | Encounter Summary ---
Author Organization [facility] Address [address] [facility] [address] [place] [address] Phone Care Team Providers Care Linen Room Supervisor Name Role Phone Edis Abdalla MD Primary Care Provider [phone]- [phone] Solo Anna MD Unavailable [phone] Krystle Diaz RN Unavailable YVONNE RUDD@[facility].[place].[facility] Last Jackman MD Unavailable [phone] Selina Rao RN Unavailable PATEL HERRON@[facility].[place].[facility] Vivek Huddleston RN Unavailable [phone] Rima Dubon RN Unavailable KYLAH ISAAC@[facility].[place].[facility] Encounter Details Date Type Department Care Team (Late st Contact Info) Description 10/03/2018 Procedure Pass [facility] Periop [address] [place] [address] Social History Tobacco Use Types Packs/Day Years [...] 8:30 AM EDT Telemedicine - audio only [facility], [place] [facility] [place] [address] [place] [address], 11th [place] [address] Last Jackman MD [address] [place] [address] Silvestre@[facility] documented as of this encounter Visit Diagnoses Not on filedocumented in this encounter Care Teams Linen Room Supervisor Relationship Specialty Start Date End Date Edis Abdalla MD [address] [place] [address] PCP - General Internal Medicine 01/18/18 Solo Anna MD [address] [phone] [email or web address] Referring Physician Urology 01/18/18 Krystle Diaz, BRITNEY 100 [facility] 120 [place] [address] OG@[facility] Primary Infusion Nurse 04/08/18 Last Jackman MD [address] [place] [address] Silvestre@[facility] Medical Oncology 10/22/18 Selina Rao, BRITNEY [address] [place] [address] DAVID@[facility] Associate Infusion Nurse 11/26/19 Vivek Huddleston RN [address] [place] [address] Rickey@[facility] Associate Infusion Nurse 11/26/19 1 Rima Dubon RN [address] [place] [address] VIOLETA@[facility] Associate Infusion Nurse 02/21/21 documented as of this encounter Additional Source Comments The information contained in this document represents components of the legal health record. It is not the complete legal health record.[facility]
--- OUTSIDE RECORDS SUMMARY | 2024-12-17 13:12 | XMS_ITS | Encounter Summary ---
Author Organization [facility] Address [address] [facility] [address] [place] [address] Phone Care Team Providers Care Mental Health Tech Name Role Phone Edis Abdalla MD Primary Care Provider [phone] Solo Anna MD Unavailable [phone] Krystle Diaz RN Unavailable YVONNE RUDD@[facility].[place].[facility] Last Jackman MD Unavailable [phone] Selina Rao RN Unavailable PATEL HERRON@[facility].[place].[facility] Vivek Huddleston RN Unavailable [phone] Rima Dubon RN Unavailable KYLAH ISAAC@[email or web address].[facility] Encounter Details Date Type Department Care Team (Late st Contact Info) Description 03/25/2018 Procedure Pass [facility] MR Imaging, [place] [address] [place] [address] Social History Tobacco Use Types Packs/Day Years [...] audio only [facility], [facility] [place] [address] [facility], 11th [place] [address] Last Jackman MD [address] [address] Silvestre@[facility] .[facility] documented as of this encounter Visit Diagnoses Not on filedocumented in this encounter Care Teams Mental Health Tech Relationship Specialty Start Date End Date Edis Abdalla MD [address] [place] [address] 201 [place] [address] PCP - General Internal Medicine 01/18/18 Solo Anna MD [address] [facility] 120 [place] [address] [email or web address] Referring Physician Urology 01/18/18 Krystle Diaz RN 100 [facility] 120 [place] [address] OG@[facility] .[facility] Primary Infusion Nurse 04/08/18 Last Jackman MD 44 [facility] [address] [place] [address] Silvestre@[facility] Medical Oncology 10/22/18 Selina Rao RN [address] [place] [address] DAVID@[facility] Associate Infusion Nurse 11/26/19 Vivek Huddleston RN [address] [place] [address] Rickey@[facility] Associate Infusion Nurse 11/26/19 1 Rima Dubon RN [address] [place] [address] VIOLETA@[facility] Associate Infusion Nurse 02/21/21 documented as of this encounter Additional Source Comments The information contained in this document represents components of the legal health record. It is not the complete legal health record.[facility]
--- OUTSIDE RECORDS SUMMARY | 2024-12-17 13:12 | XMS_ITS | Clinical Summary ---
Author Organization [facility] Address [address] [facility] [address] [place] [address] Phone Care Team Providers Care Genetics Teacher Name Role Phone Edis Abdalla MD Primary Care Provider [phone]- [phone] Solo Anna MD Unavailable [phone] Krystle Diaz RN Unavailable YVONNE RUDD@[facility].[place].[facility] Last Jackman MD Unavailable Selina Rao RN Unavailable PATEL HERRON@[facility].[place].[facility] Rima Dubon RN Unavailable KYLAH ISAAC@[facility].[place].[facility] Allergies Active Allergy Reactions Criticality Noted Date [...] Overview (09/25/2018): Followed by Dr. Azalia Shaw [facility]. Currently on protocol 18-429 METACURE Randomized to Cohort A, Arm 1 (neoadjuvant Lupron {LD 09/25/2018}+ apalutamide {LD planned for 10/01/2018} only). Pt. now scheduled for have Robotic Laparoscopic Radical Prostatectomy. 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 Treated in [place], [place] Sleep apnea 03/26/2010 Overview (09/25/2018): CPAP [...] EDT Telemedicine - audio only [facility], Genitourinary Oncology [address] [place] [address] Last Jackman MD Malignant neoplasm of prostate (Primary Dx) from [...] AM EDT Telemedicine - audio only [facility], [facility] [place] [address] [place] [address], 11th [place] [address] Last Jackman MD [address] [place] [address] Silvestre@[email or web address] .[facility] Health Maintenance Due Date Last Done Comments BLOOD PRESSURE 1950 DEPRESSION SCREENING 1962 HEPATITIS C SCREENING 1968 COLOGUARD 12/24/1995 COLONOSCOPY 12/24/1995 COLORECTAL CANCER SCREENING 12/24/1995 FIT TEST 12/24/1995 FOBT 12/24/1995 SIGMOIDOSCOPY 12/24/1995 VIRTUAL COLONOSCOPY 12/24/1995 DIABETIC EYE EXAM 09/25/2018 URINE MICROALBUMIN/CREATININE RATIO 09/25/2018 HEMOGLOBIN A1C 03/28/2019 09/25/2018 LIPID PANEL 01/26/2021 01/27/2020 INFLUENZA VACCINE (#1) 2024 , 11/24/2022, 02/06/2022, Additional history exists Adult Td,Tdap Booster 11/29/2033 11/30/2023, 014 PNEUMOCOCCAL [...] this topic Medical Devices Implanted Type Area Utilities Estimator And Drafter Device Identifier Shelf Expiration Date Model / Serial / Lot Titanium & Screws R Foot Description:Right foot Procedures Procedure Name Priority Date/Time Associated Diagnosis Comments OUTSIDE LAB 10/01/2024 OUTSIDE LAB 10/01/2024 OUTSIDE LAB 10/01/2024 OUTSIDE LAB 09/24/2024 OUTSIDE LAB 09/24/2024 LIPID PANEL Routine 01/27/2020 10:31 AM EST Other correction (current) drug therapy Malignant neoplasm of prostate [...] 10:31 AM EST) CHOLESTEROL 164 <200 mg/dL [facility] LIC# [id number] TRIGLYCERIDES 202(H) 35 - 150 mg/dL [facility] LIC# [id number] HDL 45 40 - 80 mg/dL [facility] LIC# [id number] CALCULATED LDL 79 50 - 129 mg/dL [facility] LIC# [id number] VLDL 40 mg/dL [facility] LIC# [id number] CARDIAC RISK RATIO 3.6 0.0 - 5.0 [facility] LIC# [id number] Blood 01/27/2020 10:3 1 AM EST 01/27/2020 10:48 AM EST Last Jackman MD LAB BLOOD ORDERABLES Final Result [facility] LIC# [id number] [address] [place] [address] * Hemoglobin A1c (09/25/2018 2:08 PM EDT) HEMOGLOBIN A1C 5.8 4.2 - 5.8 % [facility] CALC MEAN BLD GLUC 120 mg/dL [facility] Comment: There is no established [...] Mahoney MD LAB BLOOD ORDERABLES Final Result [facility] [address] [place] [phone] from Last 3 Months or Most Recently Relevant to Health Maintenance Insurance MEDICARE PART A & B [facility] MEDICARE ENHANCE SUPPLEMENT MEDICARE PART A & B [facility] MEDICARE ENHANCE SUPPLEMENT MEDICARE PART A & B [facility] MEDICARE ENHANCE SUPPLEMENT MEDICARE PART A & B [facility] MEDICARE ENHANCE SUPPLEMENT MEDICARE PART A & B [facility] MEDICARE ENHANCE SUPPLEMENT MEDICARE PART A & B [facility] MEDICARE ENHANCE SUPPLEMENT MEDICARE PART A & B [facility] MEDICARE ENHANCE SUPPLEMENT MEDICARE PART A & B [facility] MEDICARE ENHANCE SUPPLEMENT MEDICARE PART A & B [facility] MEDICARE ENHANCE SUPPLEMENT Advance Directives For more information, please contact: [phone] (9AM - 5PM [facility], Sunday-Sunday) Documents on File Type Date Recorded Patient Manager Proposal Expl anation Healthcare Proxy 10/10/2018 * Full Code (Presumed) (Latest Code Status on File) Date Activated Date Inactivated Comments 10/03/2018 9:11 PM 10/04/2018 4:37 PM Healthcare Agents on File Name Relationship Healthcare Agent Relationshi p Communication Toan De Leon Spouse .Primary Health Care Agent (Proxy form on file) Care Teams Genetics Teacher Relationship Specialty Start Date End Date Edis Abdalla MD [address] [place] [address] PCP - General Internal Medicine 01/18/18 Solo Anna MD [address] [facility] [address] [facility] 120 [place] [address] [email or web address] Referring Physician Urology 01/18/18 Krystle Diaz, BRITNEY [address] [facility] [address] [facility] 120 [place] [address] OG@[facility] Primary Infusion Nurse 04/08/18 Last Jackman MD [address] [place] [address] 1230 [place] [address] Silvestre@[facility] Medical Oncology 10/22/18 Selina Rao, BRITNEY [address] [place] [address] DAVID@[facility] Associate Infusion Nurse 11/26/19 Rima Dubon, BRITNEY [address] [place] [address] VIOLETA@[facility] Associate Infusion Nurse 02/21/21 Additional Source Comments The information contained in this document represents components of the legal health record. It is not the complete legal health record.[facility]
== END 2024-12-17 10:41 | disposition home or self-care (01) ==
LOC: HO.HMGAL 10:36
PROVIDERS: PCP Internal Medicine; Visit Provider Registered Nurse Emergency
DX: J30.89 Other allergic rhinitis (principal)
CPT/HCPCS: 95117; 95165

== ENCOUNTER 2025-01-19 10:52 | Outpatient (AMB) | payer MEDICARE, OTHER, SELFPAY ==
--- OUTSIDE RECORDS SUMMARY | 2025-01-19 13:29 | XMS_ITS | Encounter Summary ---
Author Organization [facility] Address [address] [facility] [address] [place] [address] Phone Care Team Providers Care Nurse Liaison Name Role Phone Edis Abdalla MD Primary Care Provider +[phone] Solo Anna MD Unavailable [phone] Krystle Diaz RN Unavailable YVONNE RUDD@[facility].[place] Last Jackman MD Unavailable [phone] Selina Rao RN Unavailable PATEL HERRON@[facility].[place].[facility] Vivek Huddleston RN Unavailable [phone] Rima Dubon RN Unavailable KYLAH ISAAC@[facility].[place].[facility] Encounter Details Date Type Department Care Team (Late st Contact Info) Description 10/19/2020 Procedure Pass [facility]'s Emission Specialist [place] [address] [place] [address] Social History Tobacco Use Types Packs/Day Years [...] 8:30 AM EDT Telemedicine - audio only [facility] Gen[facility]our[facility] On[facility], [place] [facility] [place] [address] [place], [place] [address] [facility], 11th [place] [address] Last Jackman MD [address] [place] [address] Silvestre@[facility] documented as of this encounter Visit Diagnoses Not on filedocumented in this encounter Care Teams Nurse Liaison Relationship Specialty Start Date End Date Edis Abdalla MD [address] [place] [address] 201 [place] [address] PCP - General Internal Medicine 01/18/18 Solo Anna MD 100 [facility] 120 [place] [address] [email or web address] Referring Physician Urology 01/18/18 Krystle Diaz RN 100 [facility] 120 [place] [address] OG@[facility] Primary Infusion Nurse 04/08/18 Last Jackman MD [address] [place] [address] Silvestre@[facility] Medical Oncology 10/22/18 Selina Rao RN [address] [place] [address] DAVID@[facility] Associate Infusion Nurse 11/26/19 Vivek Huddleston RN [address] [place] [address] Rickey@[facility] Associate Infusion Nurse 11/26/19 1 Rima Dubon RN [address] [place] [address] VIOLETA@[facility] Associate Infusion Nurse 02/21/21 documented as of this encounter Additional Source Comments The information contained in this document represents components of the legal health record. It is not the complete legal health record.[facility]
--- OUTSIDE RECORDS SUMMARY | 2025-01-19 13:29 | XMS_ITS | Encounter Summary ---
Author Organization [facility] Address [address] [place] [address] Phone Care Team Providers Care Mandolin Repairer Name Role Phone Edis Abdalla MD Primary Care Provider [phone] Solo Anna MD Unavailable [phone] Krystle Diaz RN Unavailable YVONNE [email or web address] Last Jackman MD Unavailable [phone] Selina Rao RN Unavailable PATEL HERRON@[facility].[place] Vivek Huddleston RN Unavailable [phone] Rima Dubon RN Unavailable KYLAH [email or web address] Encounter Details Date Type Department Care Team (Late st Contact Info) Description 01/21/2020 Procedure Pass [facility] [address] [place] [address] Social History Tobacco Use Types Packs/Day Years [...] 8:30 AM EDT Telemedicine - audio only [facility], [facility] [place] [address], 11th [place] [address] Last Jackman MD [address] [place] [address] Silvestre@[facility] documented as of this encounter Visit Diagnoses Not on filedocumented in this encounter Care Teams Mandolin Repairer Relationship Specialty Start Date End Date Edis Abdalla MD [address] [place] [address] PCP - General Internal Medicine 01/18/18 Solo Anna MD 100 [facility] 120 [place] [phone] [email or web address] Referring Physician Urology 01/18/18 Krystle Diaz RN 100 [facility] 120 [place] [address] OG@[email or web address] Primary Infusion Nurse 04/08/18 Last Jackman MD [address] [address] Silvestre@[email or web address] Medical Oncology 10/22/18 Selina Rao RN [address] [place] [address] DAVID@[facility] Associate Infusion Nurse 11/26/19 Vivek Huddleston RN [address] [place] [address] Rickey@[facility] Associate Infusion Nurse 11/26/19 1 Rima Dubno RN [address] [place] [address] VIOLETA@[email or web address] Associate Infusion Nurse 02/21/21 documented as of this encounter Additional Source Comments The information contained in this document represents components of the legal health record. It is not the complete legal health record.[facility]
--- OUTSIDE RECORDS SUMMARY | 2025-01-19 13:29 | XMS_ITS | Encounter Summary ---
Author Organization [facility] Address [address] [facility] [address] [place] [address] Phone Care Team Providers Care Drilling And Production Superintendent Name Role Phone Edis Abdalla MD Primary Care Provider [phone] Solo Anna MD Unavailable [phone] Krystle Diaz RN Unavailable YVONNE [email or web address] Last Jackman MD Unavailable [phone] Selina Rao RN Unavailable PATEL HERRON@[facility] Vivek Huddleston RN Unavailable [phone] Rima Dubon RN Unavailable KYLAH [email or web address] Encounter Details Date Type Department Care Team (Late st Contact Info) Description 03/25/2018 Procedure Pass [facility] MR Imaging, [place] [address] [place] [address] Social History Tobacco Use Types Packs/Day Years [...] audio only [facility], [facility] [place] [address] [facility], 11th [place] [address] Last Jackman MD [address] [address] Silvestre@[email or web address] documented as of this encounter Visit Diagnoses Not on filedocumented in this encounter Care Teams Drilling And Production Superintendent Relationship Specialty Start Date End Date Edis Abdalla MD [address] [place] [address] [address] [place] [address] PCP - General Internal Medicine 01/18/18 Solo Anna MD [address] [facility] 120 [place] [address] [email or web address] Referring Physician Urology 01/18/18 Krystle Diaz RN 100 [facility] 120 [place] [address] [email or web address] .[facility] Primary Infusion Nurse 04/08/18 Last Jackman MD 44 [facility] [address] [place] [address] [email or web address] Medical Oncology 10/22/18 Selina Rao RN [address] [place] [address] DAVID@[facility] Associate Infusion Nurse 11/26/19 Vivek Huddleston RN [address] [place] [address] Rickey@[email or web address] Associate Infusion Nurse 11/26/19 1 Rima Dubon RN [address] [place] [address] VIOLETA@[facility] Associate Infusion Nurse 02/21/21 documented as of this encounter Additional Source Comments The information contained in this document represents components of the legal health record. It is not the complete legal health record.[facility]
--- OUTSIDE RECORDS SUMMARY | 2025-01-19 13:29 | XMS_ITS | Encounter Summary ---
Author Organization [facility] Address [address] [facility] [address] [place] [address] Phone Care Team Providers Care Assistant Operator Name Role Phone Edis Abdalla MD Primary Care Provider [phone]- [phone] Solo Anna MD Unavailable [phone] Krystle Diaz RN Unavailable YVONNE [email or web address] Last Jackman MD Unavailable [phone] Selina Rao RN Unavailable PATEL HERRON@[facility].[place] Vivek Huddleston RN Unavailable [phone] Rima Dubon RN Unavailable KYLAH [email or web address] Encounter Details Date Type Department Care Team (Late st Contact Info) Description 02/11/2018 Procedure Pass [facility] OUTSIDE IMG 450 [place] [address] Social History Tobacco Use Types Packs/Day Years [...] [facility], [facility] [place] [address] [facility], 11th [place] [address] Last Jackman MD 44 Juliana Hankins [address] [place] [address] Silvestre@[facility] documented as of this encounter Visit Diagnoses Not on filedocumented in this encounter Care Teams Assistant Operator Relationship Specialty Start Date End Date Edis Abdalla MD [address] [place] [address] PCP - General Internal Medicine 01/18/18 Solo Anna MD [address] [address] [email or web address] Referring Physician Urology 01/18/18 Krystle Diaz RN [address] [address] [email or web address] Primary Infusion Nurse 04/08/18 Last Jackman MD 44 [facility] [address] [place] [address] Silvestre@[facility] Medical Oncology 10/22/18 Selina Rao RN [address] [place] [address] DAVID@[facility] Associate Infusion Nurse 11/26/19 Vivek Huddleston RN 450 [place] [address] Rickey@[email or web address] Associate Infusion Nurse 11/26/19 1 Rima Dubon RN 450 [place] [address] VIOLETA@[facility] Associate Infusion Nurse 02/21/21 documented as of this encounter Additional Source Comments The information contained in this document represents components of the legal health record. It is not the complete legal health record.[facility]
--- OUTSIDE RECORDS SUMMARY | 2025-01-19 13:29 | XMS_ITS | Clinical Summary ---
Author Organization [facility], Address [address] [place] [address] Care Team Providers Care Gastroenterologist Name Role Phone Edis Abdalla MD Primary Care Provider [phone] Allergies Active Allergy Reactions Criticality Noted Date [...] Overview (08/09/2020): Followed by Dr. Azalia Shaw [facility]. Currently on protocol 18-429 METACURE [...] age to complete this topic Insurance Medicare [facility] Care Teams Gastroenterologist Relationship Specialty Start Date End Date Edis Abdalla MD [address] [place] [address] [place] [address] PCP - General 01/28/19
--- OUTSIDE RECORDS SUMMARY | 2025-01-19 13:29 | XMS_ITS | Clinical Summary ---
Author Organization [facility] Address [address] [place] [address] Phone Care Team Providers Care Director Of Retail Name Role Phone Edis Abdalla MD Primary Care Provider [phone]- [phone] Solo Anna MD Unavailable [phone] Krystle Diaz RN Unavailable YVONNE [email or web address] Last Jackman MD Unavailable [phone] Selina Rao RN Unavailable PATEL [email or web address] Rima Dubon RN Unavailable KYLAH [email or web address] Allergies Active Allergy Reactions Criticality Noted Date [...] (09/25/2018): Followed by Dr. Azalia Shaw [facility]. Currently on protocol 18-429 METACURE Randomized to Cohort A, Arm 1 (neoadjuvant Lupron {LD 09/25/2018}+ apalutamide {LD planned for 10/01/2018} only). Pt. now scheduled for have Robotic Laparoscopic Radical Prostatectomy. 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 Treated in [place] Sleep apnea 03/26/2010 Overview (09/25/2018): CPAP [...] 75 , Wt: 282# = BMI 35.25 Immunizations Immunization Administration Dates Next Due Pneumococcal [...] [facility], [facility] [place] [address] [place] [address], 11th [place] [address] Last Jackman MD [address] [place] [address] Silvestre@[email or web address] Health Maintenance Due Date Last Done Comments BLOOD PRESSURE 1950 DEPRESSION SCREENING 1962 HEPATITIS C SCREENING 1968 COLOGUARD 12/24/1995 COLONOSCOPY 12/24/1995 COLORECTAL CANCER SCREENING 12/24/1995 FIT TEST 12/24/1995 FOBT 12/24/1995 SIGMOIDOSCOPY 12/24/1995 VIRTUAL COLONOSCOPY 12/24/1995 DIABETIC EYE EXAM 09/25/2018 URINE MICROALBUMIN/CREATININE RATIO 09/25/2018 HEMOGLOBIN A1C 03/28/2019 09/25/2018 LIPID PANEL 01/26/2021 01/27/2020 INFLUENZA VACCINE (#1) 2024 4, 11/24/2022, 02/06/2022, Additional history exists COVID-19 VACCINE (2024-26 season) 2024 07/14/2024, 12/26/2023, 06/04/2023, Additional history exists Adult Td,Tdap Booster 11/29/2033 11/30/2023, 014 PNEUMOCOCCAL VACCINES (50+ years) Completed 10/01/2017, 04/24/2016 ZOSTER VACCINES Completed 08/08/2018, 05/24, 02/26/2014 RSV VACCINE Completed 02/09/2024, 02/23/2023 SMOKING STATUS SCREENING (Once After 26 Yrs) [...] this topic Medical Devices Implanted Type Area Livestock Judging Coach Device Identifier Shelf Expiration Date Model / Serial / Lot Titanium & Screws R Foot Description:Right foot Procedures Procedure Name Priority Date/Time Associated Diagnosis Comments LIPID PANEL Routine 01/27/2020 10:31 AM EST Other keno terminal operator (current) drug therapy Malignant neoplasm of prostate HEMOGLOBIN A1C Routine 09/25/2018 2:08 PM EDT Pre-op evaluation from Last 3 Months or Most Recently Relevant to Health Maintenance Results * (ABNORMAL) Lipid panel (01/27/2020 10:31 AM EST) CHOLESTEROL 164 <200 mg/dL [facility] [place] LIC# [id number] TRIGLYCERIDES 202(H) 35 - 150 mg/dL [facility] LIC# [id number] HDL 45 40 - 80 mg/dL [facility] [place] LIC# [id number] CALCULATED LDL 79 50 - 129 mg/dL [facility] [place] LIC# [id number] VLDL 40 mg/dL [facility] [place] LIC# [id number] CARDIAC RISK RATIO 3.6 0.0 - 5.0 D [facility] LIC# [id number] Blood 01/27/2020 10:3 1 AM EST 01/27/2020 10:48 AM EST Last Jackman MD LAB BLOOD ORDERABLES Final Result Performing Organization Address City/[facility] Co de Phone Number [facility] LIC# [id number] [address] [place] [address] * Hemoglobin A1c (09/25/2018 2:08 PM EDT) HEMOGLOBIN A1C 5.8 4.2 - 5.8 % [facility] CALC MEAN BLD GLUC 120 mg/dL [facility] Comment: There is no [...] 2:08 PM EDT 09/25/2018 2:51 PM EDT Result [facility] Nghia Mahoney MD LAB BLOOD ORDERABLES Final Result Performing Organization Address City/[facility] Co de Phone Number [facility] [address] [place] [address] from Last 3 Months or Most Recently Relevant to Health Maintenance Insurance MEDICARE PART A & B [facility] MEDICARE ENHANCE SUPPLEMENT MEDICARE PART A & B [facility] MEDICARE ENHANCE SUPPLEMENT MEDICARE PART A & B [facility] MEDICARE ENHANCE SUPPLEMENT MEDICARE PART A & B [facility] MEDICARE ENHANCE SUPPLEMENT MEDICARE PART A & B [facility] MEDICARE ENHANCE SUPPLEMENT MEDICARE PART A & B [facility] MEDICARE ENHANCE SUPPLEMENT MEDICARE PART A & B [facility] MEDICARE ENHANCE SUPPLEMENT MEDICARE PART A & B [facility] MEDICARE ENHANCE SUPPLEMENT MEDICARE PART A & B [facility] MEDICARE ENHANCE SUPPLEMENT Advance Directives For more information, please contact: [phone] (9AM - 5PM [facility], Sunday-Sunday) Documents on File Type Date Recorded Patient Drum Sander Expl anation Healthcare Proxy 10/10/2018 * Full Code (Presumed) (Latest Code Status on File) Date Activated Date Inactivated Comments 10/03/2018 9:11 PM 10/04/2018 4:37 PM Healthcare Agents on File Name Relationship Healthcare Agent Relationshi p Communication Toan De Leon Spouse .Primary Health Care Agent (Proxy form on file) Care Teams Director Of Retail Relationship Specialty Start Date End Date Edis Abdalla MD [facility] [address] [place] [address] PCP - General Internal Medicine 01/18/18 Solo Anna MD [address] [phone] [email or web address] Referring Physician Urology 01/18/18 Krystle Diaz, RN 100 [facility] 120 [place] [address] OG@[email or web address] .[facility] Primary Infusion Nurse 04/08/18 Last Jackman MD [address] [place] [address] 1230 [place] [address] Silvestre@[facility] Medical Oncology 10/22/18 Selina Rao RN [address] [place] [address] DAVID@[facility] Associate Infusion Nurse 11/26/19 Rima Dubon, [place] [address] [place] [address] VIOLETA@[facility] Associate Infusion Nurse 02/21/21 Additional Source Comments The information contained in this document represents components of the legal health record. It is not the complete legal health record.[facility]
--- OUTSIDE RECORDS SUMMARY | 2025-01-19 13:29 | XMS_ITS | Encounter Summary ---
Author Organization [facility] Address [address] [place] [address] Phone Care Team Providers Care Employment Security Officer Name Role Phone Edis Abdalla MD Primary Care Provider [phone] Solo Anna MD Unavailable [phone] Krystle Diaz RN Unavailable YVONNE RUDD@[email or web address].[place] Last Jackman MD Unavailable [phone] Selina Rao RN Unavailable PATEL HERRON@[facility].[place] Vivek Huddleston RN Unavailable [phone] Rima Dubon RN Unavailable KYLAH [email or web address].[place] Encounter Details Date Type Department Care Team (Late st Contact Info) Description 01/21/2020 Procedure Pass [facility] [address] [place] [address] Social History Tobacco Use Types Packs/Day Years [...] EDT Telemedicine - audio only [facility], [facility] [place] [address], [address]th [place] [address] Last Jackman MD [address] [place] [address] Silvestre@[email or web address] documented as of this encounter Visit Diagnoses Not on filedocumented in this encounter Care Teams Employment Security Officer Relationship Specialty Start Date End Date Edis Abdalla MD [address] [place] [address] PCP - General Internal Medicine 01/18/18 Solo Anna MD 100 [facility] 120 [place] [address] [email or web address] Referring Physician Urology 01/18/18 Krystle Diaz RN 100 [facility] [address] [place] [address] [email or web address] Primary Infusion Nurse 04/08/18 Last Jackman MD [address] [address] Silvestre@[facility] Medical Oncology 10/22/18 Selina Rao RN [address] [place] [address] DAVID@[facility] Associate Infusion Nurse 11/26/19 Vivek Huddleston RN [address] [place] [address] Rickey@[facility] Associate Infusion Nurse 11/26/19 1 Rima Dubon RN [address] [place] [address] VIOLETA@[facility] Associate Infusion Nurse 02/21/21 documented as of this encounter Additional Source Comments The information contained in this document represents components of the legal health record. It is not the complete legal health record.[facility]
--- OUTSIDE RECORDS SUMMARY | 2025-01-19 13:29 | XMS_ITS ---
Author Organization [facility] Address [address] [facility] [address] [place] [address] Phone Care Team Providers Care Art Installer Name Role Phone Edis Abdalla MD Primary Care Provider +1- [phone] Solo Anna MD Unavailable [phone] Krystle Diaz RN Unavailable YVONNE [email or web address] Last Jackman MD Unavailable [phone] Selina Rao RN Unavailable PATEL HERRON@[email or web address] Rima Dubon RN Unavailable KYLAH [email or web address] Active Problems Problem Noted Date Diagnosed Date Malignant neoplasm of prostate 02/11/2018 Prostate cancer 12/24/2017 Overview (09/25/2018): Followed by Dr. Azalia Shaw [facility]. Currently on protocol 18-429 METACURE Randomized to Cohort A, Arm 1 (neoadjuvant Lupron {LD 09/25/2018}+ apalutamide {LD planned for 10/01/2018} only). Pt. now scheduled for have Robotic Laparoscopic Radical Prostatectomy. 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 Treated in [place], [place] Sleep apnea 03/26/2010 Overview (09/25/2018): CPAP [...] -429 ARM 1 04/09/2018 01/20/2022 ID-apalutamide <[id number]> () a. Therapy Complete Last Jackman MD 9 of 10 cycles completed
--- OUTSIDE RECORDS SUMMARY | 2025-01-19 13:29 | XMS_ITS | Clinical Summary ---
Author Organization [facility] Address [address] [place] [address] Care Team Providers Care Naturopathic Oncology Provider Name Role Phone Edis Abdalla MD Primary [...] age to complete this topic Care Teams Naturopathic Oncology Provider Relationship Specialty Start Date End Date Edis Abdalla MD PCP - General Internal Medicine 09/18/18
--- OUTSIDE RECORDS SUMMARY | 2025-01-19 13:29 | XMS_ITS | Clinical Summary ---
Author Organization [facility] Address [address] [place] [address] Care Team Providers Care Tankroom Tender Name Role Phone Edis Abdalla MD Primary Care Provider [phone] Allergies Active Allergy Reactions Criticality Noted Date Comments Tamsulosin Other (See Comments),Unknown/Patien t and Family Unable to Define,Myalgia/Myositis/ Arthralgia/Arthritis Medium 02/07/2018 Outside Source Comment: Jaw pain Jaw pain Medications aspirin enteric coated 81 MG EC tablet Take 81 mg by mouth. Active losartan (COZAAR) 50 MG tablet Take 50 mg by mouth. Active metFORMIN (GLUCOPHAGE-XR) 500 MG 24 hr tablet Take 500 mg by mouth. Active semaglutide weight management (Wegovy) 1 mg/0.5 mL auto-injector 2 mL, 0 Refill(s), INJECT 1MG SUBCUTANEOUS ONCE WEEKLY, 0 Refills, 06/09/24 12:59:00 PM EDT, Partial fill upon patient request if the prescription is for a schedule II opioid drug. 5 Active simvastatin (ZOCOR) 10 MG tablet Take 10 mg by mouth nightly. Active Zepbound 10 MG/0.5ML pen-injector 5 Active venlafaxine (EFFEXOR-XR) 37.5 MG 24 hr capsule Take 37.5 mg by mouth. Active ofloxacin (FLOXIN) 0.3 % otic solutionIndicat ions:Chronic serous otitis media, right ear Administer 3 drops into both ears daily. 5 mL 5 Active Active Problems Problem Noted Date Diagnosed Date Venous stasis of lower extremity 01/01/2025 Trigger ring finger of left hand 01/01/2025 Spondylosis of lumbar spine 01/01/2025 Renal insufficiency 01/01/2025 Overview (01/01/2025): seeing renal Premature atrial contraction 01/01/2025 Paresthesia of foot 01/01/2025 Pain of foot 01/01/2025 Paget's disease of bony pelvis 01/01/2025 Adenocarcinoma of prostate 01/01/2025 Overview (01/01/2025): Seeing Dr. Anna Male hypogonadism 01/01/2025 Lung nodule 01/01/2025 Lower urinary tract symptoms due to benign prostatic hyperplasia 01/01/2025 Lip deformity, acquired 01/01/2025 Lateral epicondylitis 01/01/2025 Overview (01/01/2025): Sees FERNIE, S/P cortisone injection Insomnia 01/01/2025 Impaired fasting glucose 01/01/2025 Hyperlipidemia 01/01/2025 Overview (01/01/2025): on statin Hot flashes 01/01/2025 Overview (01/01/2025): r/t Lupron. Managed with Effexor. History of syncope 01/01/2025 History of repair of cleft lip 01/01/2025 GERD (gastroesophageal reflux disease) HTN (hypertension) 01/01/2025 Colon polyp 01/01/2025 Class 1 obesity 01/01/2025 Chronic constipation 01/01/2025 Cholelithiases 01/01/2025 Benign prostatic hyperplasia with urinary obstru ction 01/01/2025 Overview (01/01/2025): d/shailesh tamsulosin due to headaches and jaw pain PVR was normal per patient. Sees [facility]. Arthritis of right acromioclavicular joint 01/01 Acquired phimosis of penis 01/01/2025 Gastroesophageal reflux disease with hiatal bud ia 03/24/2024 Diabetes type 2, controlled 08/09/2020 Overview (01/01/2025): managed with metformin Stage 3a chronic kidney disease 08/04/2019 Tenosynovitis 09/18/2018 Neuritis of right sural nerve 09/18/2018 Eversion deformity of right foot 09/18/2018 Malignant neoplasm of prostate 12/24/2017 Overview (01/01/2025): Followed by Dr. Azalia Shaw [facility]. Currently on protocol 18-429 METACURE Randomized to Cohort A, Arm 1 (neoadjuvant Lupron {LD 09/25/2018}+ apalutamide {LD planned for 10/01/2018} only). Pt. now scheduled for have Robotic Laparoscopic Radical Prostatectomy. Paget's disease of bone 03/26/2017 Overview (01/01/2025): sacrum. Treated in [place], [place] Tubular adenoma of colon 01/24/2016 Sleep apnea 03/26/2010 Overview (01/01/2025): CPAP Encounters Date Type Department Care Team Description 01/01/2025 7:00 AM EDT Clinical Support [facility] [address], [place] [address] Bhavik Mcwilliams MD Czaplicki, Allison Au.Babak Mixed conductive and sensorineural hearing loss of right ear with restricted hearing of left ear (Primary Dx); Sensorineural hearing loss (SNHL) of left ear with restricted hearing of right ear; Chronic serous otitis media, right ear; Eustachian tube dysfunction, bilateral from Last 3 Months Immunizations Immunization Administration Dates Next Due Covid-19 MRNA Vaccine - Pfiz er 12+ (Purple Cap) 06/09/2020,05/17/2020 Influenza High-Dose Trivalen t,(FLUZONE HIGH-DOSE), Perservative Free IM 0.5 mL 65 years and older 01/08/2017 Influenza Virus Trivalent Sp lit Vaccine (MDV) IM 12/26/2023,11/24/2022,02/06/2022,01/11,12/26/2019,12/28/2017,12/06/2017 ,01/08/2017 Influenza Whole 12/25/2019,01/26/2016 Influenza, Trivalent (FLUARI X, AFLURIA, FLULAVAL, FLUZONE) Preservative Free IM 12/11/2018 Pneumococcal Conjugate 13-Valent 04/24/2016 Pneumococcal Polysaccharide 23-Valent 10/01/2017 RSV, Bivalent, Protein Subun it RSVPREF (ABRYSVO), Diluent Reconstituted, 0.5 mL PF 02/09/2024 RSV, Recombinant, Protein Flores bunit RSV Prefusion F (AREXVY), Adjuvant Recon 0.5 mL PF 02/23/2023 Tdap 11/30/2023,05/29/2013 Zoster Vaccine Live/Attenuat ed (Zostavax) 02/26/2014 Zoster Vaccine Recombinant (Shingrix) 08/08/2018 ,06/07/2018 Social History Tobacco Use Types Packs/Day Years Used Date Smoking Tobacco: Never Passive Smoke Exposure: Never Smokeless Tobacco: Never Sex and Gender Information Value Date Recorded Sex Assigned at Male 11/12/2024 9:45 AM EDT Legal Sex Male 9:43 AM EDT Gender Identity Male 11/12/2024 9:45 AM EDT Sexual Orientation Heterosexual (straight) 11/12 9:45 AM EDT Last Filed Vital Signs Vital Sign Reading Time Taken Comments Blood Pressure - - Pulse - - Temperature - - Respiratory Rate - - Oxygen Saturation - - Inhaled Oxygen Concentration - - Weight 111 kg (245 lb) 01/01/2025 7:04 AM EDT Height 185.4 cm (6' 1 ) 01/01/2025 7:04 AM EDT Body Mass Index 32.32 01/01/2025 7:04 AM EDT Plan of Treatment Upcoming Encounters Date Type Department Care Team (Late st Contact Info) Description 01/29/2025 10:15 AM EST Office Visit [facility] [address], [place] [address] Bhavik Mcwilliams MD [address] [place] [address] Health Maintenance Due Date Last Done Comments Advance Care Planning 1950 Hepatitis C Virus Screening 1950 Creatinine with GFR 1960 Foot Exam 1960 Lipid Panel 1960 Ophthalmology Exam 1960 Microalbumin/Creatinine Ratio Urine 1968 Colonoscopy 12/24/1995 Hemoglobin A1C 03/28/2019 09/25/2018 Influenza Vaccine 10/24/2024 12/26/2023, , 02/06/2022, Additional history exists COVID-19 Vaccine (9 - Pfizer risk 2023- season) 2024 12/26/2023, 06/04/2023, 12/18/2022, Additional history exists DTaP/Tdap/Td Vaccines (3 - Td or Tdap) 11/29/2033 11/30/2023, 05/29/2013 Pneumococcal Vaccines 50+ Completed 10/01/2017, Zoster (Shingles) Vaccine Completed 2018, 06/07/2018, 02/26/2014 RSV Vaccine 50 years and older and Patients Completed 02/09/2024, 02/23/2023 Hepatitis B Vaccines Aged Out No long er eligible based on patient's age to complete this topic Procedures Procedure Name Priority Date/Time Associated Diagnosis Comments BASIC COMPREHENSIVE AU Routine 01/01/2025 7:00 AM EDT Sensorineural hearing loss (SNHL) of left ear with restricted hearing of right ear Mixed conductive and sensorineural hearing loss of right ear with restricted hearing of left ear from Last 3 Months Results * BASIC COMPREHENSIVE AU (01/01/2025 7:00 AM EDT) Narrative Wendy Yen Au.D - 01/01/2025 7:00 AM EDT Onelia Staples 01/01/2025 7:24 AM Procedure Note Onelia Staples - 01/01/2025 7:00 AM EDT Images from the original note were not included. us Bhavik Mcwilliams MD AMB ORDERABLE PERFORMABLE Fin al Result from Last 3 Months Insurance MEDICARE PART A & B Care Teams Tankroom Tender Relationship Specialty Start Date End Date Edis Abdalla MD [address] [place] [address] PCP - General 11/12/24
--- OUTSIDE RECORDS SUMMARY | 2025-01-19 13:30 | XMS_ITS | Encounter Summary ---
Author Organization [facility] Address [address] [place] [address] Phone Care Team Providers Care Superintendent Warehouse Name Role Phone Edis Abdalla MD Primary Care Provider [phone] Solo Anna MD Unavailable [phone] Krystle Diaz RN Unavailable [email or web address] Last Jackman MD Unavailable [phone] Selina Rao RN Unavailable PATEL [email or web address] Vivek Huddleston RN Unavailable [phone] Rima Dubon RN Unavailable KYLAH [email or web address] Encounter Details Date Type Department Care Team (Late st Contact Info) Description 10/03/2018 Procedure Pass [facility] Periop [address] [place] [address] Social History Tobacco Use Types Packs/Day Years [...] 8:30 AM EDT Telemedicine - audio only [facility], [facility] [place] [address] [place] [address], [address] [place] [address] Last Jackman MD [address] [place] [address] [email or web address] documented as of this encounter Visit Diagnoses Not on filedocumented in this encounter Care Teams Superintendent Warehouse Relationship Specialty Start Date End Date Edis Abdalla MD [address] [place] [address] PCP - General Internal Medicine 01/18/18 Solo Anna MD [address] [phone] [email or web address] Referring Physician Urology 01/18/18 Krystle Diaz, BRITNEY [address] [facility] [address] [place] [address] [email or web address] AT [facility] Primary Infusion Nurse 04/08/18 Last Jackman MD [address] [place] [address] [email or web address] Medical Oncology 10/22/18 Selina Rao, BRITNEY [address] [place] [address] [email or web address] Associate Infusion Nurse 11/26/19 Vivek Huddleston RN [address] [place] [address] [email or web address] Associate Infusion Nurse 11/26/19 1 Rima Dubon RN [address] [place] [address] [email or web address] Associate Infusion Nurse 02/21/21 documented as of this encounter Additional Source Comments The information contained in this document represents components of the legal health record. It is not the complete legal health record.[facility]
--- OUTSIDE RECORDS SUMMARY | 2025-01-19 13:30 | XMS_ITS | Clinical Summary ---
Author Organization [facility] Address [address] [place] [address] Care Team Providers Care Air Cargo Ground Crew Supervisor Name Role Phone Edis Abdalla MD Primary Care Provider [phone] Medical History Medical History Date Comments Allergic [...] Date Last Done Comments Colorectal Cancer Screening: Colonoscopy 1950 DTaP,Tdap,and Td Vaccines (1 - Tdap) 1969 Pneumococcal Vaccine: 50+ Ye ars (1 of 1 - PCV) 2000 Zoster Vaccines (1 of 2) 2000 Abdominal Aortic Aneurysm (A AA) Screen 02/25/2022 Cholesterol Screening (Lipid Panel) 02/25/2022 Falls Risk Assessment 02/25/2022 Hepatitis C Screening 02/25/2022 Social Influencers of Health Screening 02/25/2022 Depression Screening 03/26/2024 COVID-19 Vaccine ( - 2023-2 5 season) 2024 Influenza Vaccine (#1) 2024 RSV Immunization Adult [...] age to complete this topic Care Teams Air Cargo Ground Crew Supervisor Relationship Specialty Start Date End Date Edis Abdalla MD [address] [place] [address] PCP - General Internal Medicine 09/18/18
== END 2025-01-19 10:54 | disposition home or self-care (01) ==
LOC: HO.HMGAL 10:52
PROVIDERS: PCP Internal Medicine; Visit Provider Registered Nurse Emergency
DX: J30.89 Other allergic rhinitis (principal)
CPT/HCPCS: 95117; 95165

== ENCOUNTER 2025-02-16 10:51 | Outpatient (AMB) | payer MEDICARE, OTHER, SELFPAY ==
--- OUTSIDE RECORDS SUMMARY | 2025-02-16 13:39 | XMS_ITS ---
Author Organization [facility] Address [address] [facility] [address] [place] [address] Phone Care Team Providers Care Postbed Stitcher Name Role Phone Edis Abdalla MD Primary Care Provider [phone] Solo Anna MD Unavailable [phone] Krystle Diaz RN Unavailable [email or web address] Last Jackman MD Unavailable [phone] Rima Dubon RN Unavailable KYLAH [email or web address] Active Problems Problem Noted Date Diagnosed Date Malignant neoplasm of prostate 02/11/2018 Prostate cancer 12/24/2017 Overview (09/25/2018): Followed by Dr. Azalia Shaw [facility]. Currently on protocol 18-429 METACURE Randomized to Cohort A, Arm 1 (neoadjuvant Lupron {LD 09/25/2018}+ apalutamide {LD planned for 10/01/2018} only). Pt. now scheduled for have Robotic Laparoscopic Radical Prostatectomy. 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 Treated in [place], [place] Sleep apnea 03/26/2010 Overview (09/25/2018): CPAP [...] Cycles -429 ARM 1 04/09/2018 01/20/2022 ID-apalutamide <[id number]> () a. Therapy Complete Last Jackman MD 9 of 10 cycles completed
--- OUTSIDE RECORDS SUMMARY | 2025-02-16 13:39 | XMS_ITS | Clinical Summary ---
Author Organization [facility] Address [address] [place] [address] Care Team Providers Care Dressmaker Helper Name Role Phone Edis Abdalla MD Primary Care Provider [phone] Allergies Active Allergy Reactions Criticality Noted Date [...] age to complete this topic Care Teams Dressmaker Helper Relationship Specialty Start Date End Date Edis Abdalla MD PCP - General Internal Medicine 09/18/18
--- OUTSIDE RECORDS SUMMARY | 2025-02-16 13:39 | XMS_ITS | Clinical Summary ---
Author Organization [facility] Address [address] [place] [address] Care Team Providers Care Professor Of Visual Arts Name Role Phone Edis Abdalla MD Primary Care Provider [phone] Allergies Active Allergy Reactions Criticality Noted Date [...] Overview (01/01/2025): Followed by Dr. Azalia Shaw [facility]. Currently on protocol 18-429 METACURE Randomized to Cohort A, Arm 1 (neoadjuvant Lupron {LD 09/25/2018}+ apalutamide {LD planned for 10/01/2018} only). Pt. now scheduled for have Robotic Laparoscopic Radical Prostatectomy. Paget's disease of bone 03/26/2017 Overview (01/01/2025): sacrum. Treated in [place], [place] Tubular adenoma of colon 01/24/2016 Sleep apnea 03/26/2010 Overview (01/01/2025): CPAP Encounters Date Type Department Care Team Description 01/29/2025 10:15 AM EST Office Visit [facility] [address] [address] Bhavik Mcwilliams MD Eustachian tube dysfunction, bilateral (Primary Dx); Sensorineural hearing loss (SNHL) of left ear with restricted hearing of right ear 01/01/2025 7:00 AM EDT Clinical Support [facility] [address] [address] Bhavik Mcwilliams MD Czaplicki, Allison, Au.D Mixed conductive and sensorineural hearing loss of [...] Passive Smoke Exposure: Never Smokeless Tobacco: Never Tobacco Cessation:Counseling Given: Not Answered Sex and Gender Information Value Date Recorded [...] - - Weight 111 kg (245 lb) 01/29/2025 10:02 AM EST Height 185.4 cm (6' 1 ) 01/29/2025 10:02 AM EST Body Mass Index 32.32 01/29/2025 10:02 AM EST Plan of Treatment Health Maintenance Due Date [...] Months [place] [id number] Care Teams Professor Of Visual Arts Relationship Specialty Start Date End Date Edis Abdalla MD [address] [place] [address] PCP - General 11/12/24
--- OUTSIDE RECORDS SUMMARY | 2025-02-16 13:40 | XMS_ITS | Encounter Summary ---
Author Organization [facility] Address [address] [place] [address] Phone Care Team Providers Care Therapy Director Name Role Phone Edis Abdalla MD Primary Care Provider [phone] Solo Anna MD Unavailable [phone] Krystle Diaz RN Unavailable [email or web address] Last Jackman MD Unavailable [phone] Selina Rao RN Unavailable [email or web address] Vivek Huddleston RN Unavailable [phone] Rima Dubon RN Unavailable KYLAH [email or web address] Encounter Details Date Type Department Care Team (Late st Contact Info) Description 01/21/2020 Procedure Pass [facility] [address] [place] [address] Social History Tobacco Use Types Packs/Day Years [...] 8:30 AM EDT Telemedicine - audio only [facility], [facility] [place] [address] [facility], 11th [place] [address] Last Jackman MD 44 [facility] [address] [place] [address] [email or web address] documented as of this encounter Visit Diagnoses Not on filedocumented in this encounter Care Teams Therapy Director Relationship Specialty Start Date End Date Edis Abdalla MD [address] [place] [address] [address] [place] [address] PCP - General Internal Medicine 01/18/18 Solo Anna MD 100 [facility] 120 [place] [phone] [email or web address] Referring Physician Urology 01/18/18 Krystle Diaz RN 100 [facility] 120 [place] [address] [email or web address] Primary Infusion Nurse 04/08/18 Last Jackman MD 44 [facility] [address] [place] [address] [email or web address] Medical Oncology 10/22/18 Selina Rao RN [address] [place] [address] [email or web address] Associate Infusion Nurse 11/26/19 5 Vivek Huddleston RN [address] [place] [address] [email or web address] Associate Infusion Nurse 11/26/19 1 Rima Dubon RN [address] [place] [address] [email or web address] Associate Infusion Nurse 02/21/21 documented as of this encounter Additional Source Comments The information contained in this document represents components of the legal health record. It is not the complete legal health record.[facility]
--- OUTSIDE RECORDS SUMMARY | 2025-02-16 13:40 | XMS_ITS | Encounter Summary ---
Author Organization [facility] Address [address] [facility] [address] [place] [address] Phone Care Team Providers Care Loss Prevention Specialist Name Role Phone Edis Abdalla MD Primary Care Provider [phone] Solo Anna MD Unavailable [phone] Krystle Diaz RN Unavailable YVONNE [email or web address] Last Jackman MD Unavailable [phone] Selina Rao RN Unavailable Nisreen [email or web address] Vivek Huddleston RN Unavailable [phone] Rima Dubon RN Unavailable KYLAH [email or web address] Encounter Details Date Type Department Care Team (Late st Contact Info) Description 01/21/2020 Procedure Pass [facility] [address] [place] [address] Social History Tobacco Use Types Packs/Day Years [...] AM EDT Telemedicine - audio only [facility], [facility] [place] [address] [facility], [address]th [place] [address] Last Jackman MD 44 [facility] [address] [place] [address] Silvestre@[email or web address] documented as of this encounter Visit Diagnoses Not on filedocumented in this encounter Care Teams Loss Prevention Specialist Relationship Specialty Start Date End Date Edis Abdalla MD [address] [place] [address] 201 [place] [address] PCP - General Internal Medicine 01/18/18 Solo Anna MD 100 [facility] 120 [place] [phone] [email or web address] Referring Physician Urology 01/18/18 Krystle Diaz RN 100 [facility] 120 [place] [address] [email or web address] Primary Infusion Nurse 04/08/18 Last Jackman MD 44 [facility] [address] [place] [address] [email or web address] Medical Oncology 10/22/18 Selina Rao RN 300 [place] [address] [email or web address] Associate Infusion Nurse 11/26/19 5 Vivek Huddleston RN [address] [place] [address] [email or web address] Associate Infusion Nurse 11/26/19 1 Rima Dubon RN [address] [place] [address] [email or web address] Associate Infusion Nurse 02/21/21 documented as of this encounter Additional Source Comments The information contained in this document represents components of the legal health record. It is not the complete legal health record.[facility]
--- OUTSIDE RECORDS SUMMARY | 2025-02-16 13:40 | XMS_ITS | Clinical Summary ---
Author Organization [facility] Address [address] [facility] [address] [place] [address] Phone Care Team Providers Care Ignition Mechanic Name Role Phone Edis Abdalla MD Primary Care Provider +1- [phone] Solo Anna MD Unavailable [phone]- [phone] Krystle Diaz RN Unavailable YVONNE [email or web address] Last Jackman MD Unavailable Rima Dubon RN Unavailable KYLAH [email or web address] Allergies Active Allergy Reactions Criticality Noted Date [...] Overview (09/25/2018): Followed by Dr. Azalia Shaw [facility]. Currently on protocol [id number] METACURE Randomized to Cohort A, Arm 1 (neoadjuvant Lupron {LD 09/25/2018}+ apalutamide {LD planned for 10/01/2018} only). Pt. now scheduled for have Robotic Laparoscopic Radical Prostatectomy. 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 Treated in [place], [place] Sleep apnea 03/26/2010 Overview (09/25/2018): CPAP [...] audio only [facility], [facility] [place] [address] [place] [address], 11th [place] [address] Last Jackman MD [address] [place] [address] [email or web address] Health Maintenance Due Date Last Done [...] this topic Medical Devices Implanted Type Area Manager Er Device Identifier Shelf Expiration Date Model / Serial / Lot Titanium & Screws R Foot Description:Right foot Procedures Procedure Name Priority Date/Time Associated Diagnosis Comments LIPID PANEL Routine 01/27/2020 10:31 AM EST Other shelter (current) drug therapy Malignant neoplasm of prostate HEMOGLOBIN A1C Routine 09/25/2018 2:08 PM EDT Pre-op evaluation from Last 3 Months or Most Recently Relevant to Health Maintenance Results * (ABNORMAL) Lipid panel (01/27/2020 10:31 AM EST) CHOLESTEROL 164 <200 mg/dL [facility] LIC# [id number] TRIGLYCERIDES 202(H) 35 - 150 mg/dL [facility] LIC# [id number] HDL 45 40 - 80 mg/dL [facility] LIC# [id number] CALCULATED LDL 79 50 - 129 mg/dL [facility] LIC# [id number] VLDL 40 mg/dL [facility] LIC# [id number] CARDIAC RISK RATIO 3.6 0.0 - 5.0 D [facility] LIC# [id number] Blood 01/27/2020 10:3 1 AM EST 01/27/2020 10:48 AM EST Last Jackman MD LAB BLOOD BKR ORDERABLES Fi nal Result Performing Organization Address [facility] Co de Phone Number [facility]# [id number] [address] [place] [address] * Hemoglobin A1c (09/25/2018 2:08 PM EDT) HEMOGLOBIN A1C 5.8 4.2 - 5.8 % [facility] CALC MEAN BLD GLUC 120 mg/dL [facility] Comment: There is no [...] PM EDT Nghia Mahoney MD LAB BLOOD BKR ORDERABLES Fi nal Result Performing Organization Address [facility] Co de Phone Number [facility] [address] [place] [phone] from Last 3 Months or Most Recently Relevant to Health Maintenance Insurance MEDICARE PART A & B [facility] ENHANCE SUPPLEMENT MEDICARE PART A & B [facility] MEDICARE ENHANCE SUPPLEMENT MEDICARE PART A & B [facility] MEDICARE ENHANCE SUPPLEMENT MEDICARE PART A & B [facility] MEDICARE ENHANCE SUPPLEMENT MEDICARE PART A & B [facility] MEDICARE ENHANCE SUPPLEMENT MEDICARE PART A & B [facility] MEDICARE ENHANCE SUPPLEMENT MEDICARE PART A & B [facility] MEDICARE ENHANCE SUPPLEMENT MEDICARE PART A & B [facility] MEDICARE ENHANCE SUPPLEMENT MEDICARE PART A & B [facility] MEDIC[facility] ENHANCE SUPPLEMENT Advance Directives For more information, please contact: [phone] (9AM - 5PM [facility], Sunday-Sunday) Documents on File Type Date Recorded Patient Bliss Press Operator Expl anation Healthcare Proxy 10/10/2018 * Full Code (Presumed) (Latest Code Status on File) Date Activated Date Inactivated Comments 10/03/2018 9:11 PM 10/04/2018 4:37 PM Healthcare Agents on File Name Relationship Healthcare Agent Relationshi p Communication Toan De Leon Spouse .Primary Health Care Agent (Proxy form on file) Care Teams Ignition Mechanic Relationship Specialty Start Date End Date Edis Abdalla MD [facility] [address] [place] [address] PCP - General Internal Medicine 01/18/18 Solo Anna MD [address] [address] [email or web address] Referring Physician Urology 01/18/18 Krystle Diaz, RN 100 [facility] 120 [place] [address] [email or web address] .[facility] Primary Infusion Nurse 04/08/18 Last Jackman MD [address] [place] [address] [email or web address] Medical Oncology 10/22/18 Rima Dubon, BRITNEY [address] [place] [address] VIOLETA@[facility] Associate Infusion Nurse 02/21/21 Additional Source Comments The information contained in this document represents components of the legal health record. It is not the complete legal health record.[facility]
--- OUTSIDE RECORDS SUMMARY | 2025-02-16 13:41 | XMS_ITS | Encounter Summary ---
Author Organization [facility] Address [address] [facility] [address] [place] [address] Phone Care Team Providers Care Salon/Spa Manager Name Role Phone Edis Abdalla MD Primary Care Provider [phone]- [phone] Solo Anna MD Unavailable [phone] Krystle Diaz RN Unavailable YVONNE [email or web address].[employer].[facility] Last Jackman MD Unavailable [phone] Selina Rao RN Unavailable Nisreen Us@[email or web address].[employer].[facility] Vivek Huddleston RN Unavailable [phone] Rima Dubon RN Unavailable KYLAH [email or web address].[employer].[facility] Encounter Details Date Type Department Care Team (Late st Contact Info) Description 03/25/2018 Procedure Pass [facility] MR Imaging, [place] [address] [place] [address] Social History Tobacco Use Types Packs/Day Years [...] audio only [facility], [facility] [place] [address], [address]th [place] [address] Last Jackman MD 44 [facility] [address] [place] [address] Silvestre@[email or web address] documented as of this encounter Visit Diagnoses Not on filedocumented in this encounter Care Teams Salon/Spa Manager Relationship Specialty Start Date End Date Edis Abdalla MD [address] [place] [address] 201 [place] [address] PCP - General Internal Medicine 01/18/18 Solo Anna MD [address] [facility] 120 [place] [address] [email or web address] Referring Physician Urology 01/18/18 Krystle Diaz RN 100 [facility] 120 [place] [address] [email or web address] .[facility] Primary Infusion Nurse 04/08/18 Last Jackman MD [address] [facility] [address] [place] [address] Silvestre@[email or web address] Medical Oncology 10/22/18 Selina Rao, BRITNEY [address] [place] [address] Lily@[email or web address] Associate Infusion Nurse 11/26/19 Vivek Buckley RN [address] [place] [address] Rickey@[email or web address] Associate Infusion Nurse 11/26/19 1 Rima Dubon RN [address] [place] [address] VIOLETA@[email or web address] Associate Infusion Nurse 02/21/21 documented as of this encounter Additional Source Comments The information contained in this document represents components of the legal health record. It is not the complete legal health record.[facility]
--- OUTSIDE RECORDS SUMMARY | 2025-02-16 13:41 | XMS_ITS | Encounter Summary ---
Author Organization [facility] Address [address] [facility] [address] [place] [address] Phone Care Team Providers Care Patrol Community Service Officer Name Role Phone Edis Abdalla MD Primary Care Provider [phone]- [phone] Solo Anna MD Unavailable [phone]- [phone] Krystle Diaz RN Unavailable YVONNE [email or web address] Last Jackman MD Unavailable [phone] Selina Rao RN Unavailable Nisreen [email or web address] Vivek Huddleston RN Unavailable [phone] Rima Dubon RN Unavailable KYLAH [email or web address] Encounter Details Date Type Department Care Team (Late st Contact Info) Description 02/11/2018 Procedure Pass [facility] OUTSIDE IMG 450 [place] [address] Social History Tobacco Use Types Packs/Day Years [...] [facility], [facility] [place] [address] [facility], 11th [place] [address] Last Jackman MD 44 [address] [place] [address] Silvestre@[facility] documented as of this encounter Visit Diagnoses Not on filedocumented in this encounter Care Teams Patrol Community Service Officer Relationship Specialty Start Date End Date Edis Abdalla MD [address] [place] [address] PCP - General Internal Medicine 01/18/18 Solo Anna MD 100 [facility] 120 [place] [address] [email or web address] Referring Physician Urology 01/18/18 Krystle Diaz RN [address] [address] [email or web address] Primary Infusion Nurse 04/08/18 Last Jackman MD 44 [place] [address] [place] [address] Silvestre@[email or web address] Medical Oncology 10/22/18 Selina Rao RN 300 [place] [address] Lily@[email or web address] Associate Infusion Nurse 11/26/19 5 Vivek Huddleston RN 300 [place] [address] Rickey@[facility] Associate Infusion Nurse 11/26/19 1 Rima Dubon RN [address] [place] [address] VIOLETA@[facility] Associate Infusion Nurse 02/21/21 documented as of this encounter Additional Source Comments The information contained in this document represents components of the legal health record. It is not the complete legal health record.[facility]
--- OUTSIDE RECORDS SUMMARY | 2025-02-16 13:41 | XMS_ITS | Encounter Summary ---
Author Organization [facility] Address [address] [facility] [address] [place] [address] Phone Care Team Providers Care Volleyball Assistant Coach Name Role Phone Edis Abdalla MD Primary Care Provider [phone] Solo Anna MD Unavailable [phone] Krystle Diaz RN Unavailable YVONNE RUDD@[email or web address].[place].[facility] Last Jackman MD Unavailable [phone] Selina Rao RN Unavailable Nisreen Us@[facility].[place].[facility] Vivek Huddleston RN Unavailable [phone] Rima Dubon RN Unavailable KYLAH [email or web address].[place].[facility] Encounter Details Date Type Department Care Team (Late st Contact Info) Description 10/19/2020 Procedure Pass [facility]'s Employment Specialist/Program Manager [place] [address] [place] [address] Social History Tobacco Use Types Packs/Day Years [...] 8:30 AM EDT Telemedicine - audio only [facility], [facility] [place] 450 [facility], 11th [place] [address] Last Jackman MD 44 [facility] [address] [place] [address] Silvestre@[email or web address] documented as of this encounter Visit Diagnoses Not on filedocumented in this encounter Care Teams Volleyball Assistant Coach Relationship Specialty Start Date End Date Edis Abdalla MD [address] [place] [address] 201 [place] [address] PCP - General Internal Medicine 01/18/18 Solo Anna MD 100 [facility] 120 [place] [address] [email or web address] Referring Physician Urology 01/18/18 Krystle Diaz RN [address] [address] OG@[email or web address] Primary Infusion Nurse 04/08/18 Last Jackman MD 44 [facility] [address] [place] [address] Silvestre@[facility] Medical Oncology 10/22/18 Selina Rao RN 300 [place] [address] Lily@[email or web address] Associate Infusion Nurse 11/26/19 5 Vivek Huddleston RN 300 [place] [address] Rickey@[email or web address] Associate Infusion Nurse 11/26/19 1 Rima Dubon RN 450 [place] [address] VIOLETA@[facility] Associate Infusion Nurse 02/21/21 documented as of this encounter Additional Source Comments The information contained in this document represents components of the legal health record. It is not the complete legal health record.[facility]
--- OUTSIDE RECORDS SUMMARY | 2025-02-16 13:41 | XMS_ITS | Encounter Summary ---
Author Organization [facility] Address [address] [facility] [address] [place] [address] Phone Care Team Providers Care Senior Engineering Team Leader Name Role Phone Edis Abdalla MD Primary Care Provider [phone] Solo Anna MD Unavailable [phone] Krystle Diaz RN Unavailable YVONNE RUDD@[email or web address] Last Jackman MD Unavailable [phone] Selina Rao RN Unavailable Nisreen [email or web address] Vivek Huddleston RN Unavailable [phone] Rima uDbon RN Unavailable KYLAH [email or web address] Encounter Details Date Type Department Care Team (Late st Contact Info) Description 10/03/2018 Procedure Pass [facility] [address] [place] [address] Social History Tobacco Use Types Packs/Day Years [...] Telemedicine - audio only [facility], [facility] [place] [address] [place] [address], 11th [place] [address] Last Jackman MD [address] [address] Silvestre@[facility] documented as of this encounter Visit Diagnoses Not on filedocumented in this encounter Care Teams Senior Engineering Team Leader Relationship Specialty Start Date End Date Edis Abdalla MD [address] [place] [address] PCP - General Internal Medicine 01/18/18 Solo Anna MD [address] [phone] [email or web address] Referring Physician Urology 01/18/18 Krystle Diaz, BRITNEY 100 [facility] 120 [place] [address] OG@[email or web address] Primary Infusion Nurse 04/08/18 Last Jackman MD [address] [address] Silvestre@[email or web address] Medical Oncology 10/22/18 Selina Rao, BRITNEY 300 [place] [address] Lily@[email or web address] Associate Infusion Nurse 11/26/19 5 Vivek Huddleston RN 300 [place] [address] Rickey@[email or web address] Associate Infusion Nurse 11/26/19 1 Rima Dubon RN [address] [place] [address] VIOLETA@[facility] Associate Infusion Nurse 02/21/21 documented as of this encounter Additional Source Comments The information contained in this document represents components of the legal health record. It is not the complete legal health record.[facility]
== END 2025-02-16 10:52 | disposition home or self-care (01) ==
LOC: HO.HMGAL 10:51
PROVIDERS: PCP Internal Medicine; Visit Provider Registered Nurse Emergency
DX: J30.89 Other allergic rhinitis (principal)
CPT/HCPCS: 95117; 95165